=== PATIENT | male | born 1935 | race Caucasian/White ===

== ENCOUNTER 2017-11-27 15:53 | Inpatient (IN) | payer MEDICARE, OTHER ==
[~2017-11-27] VITALS: Ht 170.2 cm; Wt 78.5 kg
--- NOTE | 2017-11-27 16:09 | ED Syncope ---
General Stated Complaint: UNRESPONSIVE Source of Information: Patient, EMS Exam Limitations: No Limitations History of Present Illness Date Seen by Provider: Nov 27, 2017 Time Seen by Provider: 15:49 Initial Comments The patient presents to the ER by EMS with a chief complaint that they have been down in [place] with some family and went up to [place] and ate at a burger joint and afterwards they got in the car and he says that his family told him he promptly passed out and they could not get him to wake up so they called EMS. EMS woke him up with noxious stimuli and distal next thing he remembers. He says he does not have a history of any diabetes, heart problems, seizures, stroke and does not take any medications. EMS says his blood sugar was normal as well as his EKG. He had a temperature of 99 per EMS. They gave him 500 cc of normal saline through IV and they said on the way over he had an episode where he stared off in the space for about 2-3 seconds and then had 2 or 3 myoclonic full body jerks followed by a few more seconds of staring off into space before jerking his head back and looking at the hat former alert and oriented 4. No postictal phase. The patient denies any recent cough, cold, nausea, vomiting. First responders reported that he did vomit up a very small amount of food when they got there. He is not short of breath nor is he having any chest pain. He says this morning he was expressing a little bit of pain in the left side of his neck anteriorly and he felt a nodule but is not there anymore. He has no sore throat, hoarseness, runny nose, ears popping or feeling underwater, chills, sweats, rash, insect bite, recent travel outside the [facility], sick contacts or drinking/eating from unsafe food or water sources. Allergies and Home Medications Allergies Coded Allergies: No Known Drug Allergies (Unverified , 11/27/17) Patient Home Medication List Home Medication List Reviewed: Yes Constitutional: No chills, No diaphoresis, No fever, No malaise EENTM: No ear discharge, No ear pain, No eye pain, No vision loss, No mouth pain Respiratory: No cough, No short of breath Cardiovascular: No chest pain, No edema, No palpitations Gastrointestinal: No abdominal pain, No constipation, No nausea; vomiting Genitourinary: No discharge, No dysuria Musculoskeletal: No back pain, No joint pain Skin: No pruritus, No rash Psychiatric/Neurological: Denies Headache, Denies Numbness Past Rjjjdva-Trayxf-Zhwjjz Hx Patient Social History Alcohol Use: Denies Use Recreational Drug Use: No Smoking Status: Never a Smoker Physical Exam Vital Signs Vital Signs - First Documented 11/27/17 15:53 Temp 100.9 Pulse 93 Resp 20 B/P (MAP) 152/81 (104) O2 Delivery Room Air Capillary Refill : General Appearance: No Apparent Distress, WD/WN HEENT: PERRL/EOMI, TMs Normal, Normal ENT Inspection, Pharynx Normal Neck: Full Range of Motion, Non Tender, Supple Cardiovascular: Regular Rate, Rhythm, No Edema, No Murmur, Normal Peripheral Pulses Respiratory: Chest Non Tender, Lungs Clear, Normal Breath Sounds, No Accessory Muscle Use, No Respiratory Distress Gastrointestinal: Normal Bowel Sounds, No Organomegaly, Non Tender, Soft Back: Normal Inspection, No CVA Tenderness, No Vertebral Tenderness Extremities: Normal Capillary Refill, Normal Inspection, Normal Range of Motion , Non Tender, No Calf Tenderness, No Pedal Edema Neurologic/Psychiatric: Alert, Oriented x3, No Motor/Sensory Deficits, Normal 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, 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 Norm as Tested Cranial Nerves: Normal Hearing, Normal Speech, PERRL Motor/Sensory: No Motor Deficit, No Sensory Deficit Skin: Normal Color, Warm/Dry, Ecchymosis (right foot second toe distal phalanx old bruising without tenderness or loss of range of motion) Focused Exam Lactate Level 11/27/17 15:55: Lactic Acid Level 1.57 Lactic Acid Level Laboratory Tests Test 11/27/17 15:55 Lactic Acid Level 1.57 MMOL/L (0.50-2.00) Progress/Results/Core Measures Results/Orders Lab Results Laboratory Tests Test 11/27/17 15:55 11/27/17 16:45 11/27/17 16:51 Range/Units White Blood Count 11.6 H 4.3-11.0 10^3/uL Red Blood Count 4.84 4.35-5.85 10^6/uL Hemoglobin 15.2 13.3-17.7 G/DL Hematocrit 44 40-54 % Mean Corpuscular Volume 90 80-99 FL Mean Corpuscular Hemoglobin 31 25-34 PG Mean Corpuscular Hemoglobin Concent 35 32-36 G/DL Red Cell Distribution Width 13.6 10.0-14.5 % Platelet Count 178 130-400 10^3/uL Mean Platelet Volume 11.3 H 7.4-10.4 FL Neutrophils (%) (Auto) 78 H 42-75 % Lymphocytes (%) (Auto) 8 L 12-44 % Monocytes (%) (Auto) 13 H 0-12 % Eosinophils (%) (Auto) 1 0-10 % Basophils (%) (Auto) 0 0-10 % Neutrophils # (Auto) 9.0 H 1.8-7.8 X 10^3 Lymphocytes # (Auto) 0.9 L 1.0-4.0 X 10^3 Monocytes # (Auto) 1.5 H 0.0-1.0 X 10^3 Eosinophils # (Auto) 0.1 0.0-0.3 10^3/uL Basophils # (Auto) 0.0 0.0-0.1 10^3/uL Sodium Level 135 135-145 MMOL/L Potassium Level 4.5 3.6-5.0 MMOL/L Chloride Level 103 98-107 MMOL/L Carbon Dioxide Level 21 21-32 MMOL/L Anion Gap 11 5-14 MMOL/L Blood Urea Nitrogen 18 7-18 MG/DL Creatinine 1.35 H 0.60-1.30 MG/DL Estimat Glomerular Filtration Rate 51 BUN/Creatinine Ratio 13 Glucose Level 124 H 70-105 MG/DL Lactic Acid Level 1.57 0.50-2.00 MMOL/L Calcium Level 8.9 8.5-10.1 MG/DL Magnesium Level 2.1 1.8-2.4 MG/DL Total Bilirubin 2.1 H 0.1-1.0 MG/DL Aspartate Amino Transf (AST/SGOT) 19 5-34 U/L Alanine Aminotransferase (ALT/SGPT) 18 0-55 U/L Alkaline Phosphatase 60 40-136 U/L Troponin I < 0.30 <0.30 NG/ML C-Reactive Protein High Sensitivity 8.75 H 0.00-0.50 MG/DL Total Protein 6.9 6.4-8.2 GM/DL Albumin 3.8 3.2-4.5 GM/DL Group A Streptococcus Screen NEGATIVE NEGATIVE Urine Color YELLOW Urine Clarity CLEAR Urine pH 7 5-9 Urine Specific [place] 1.015 L 1.016-1.022 Urine Protein 3+ H NEGATIVE Urine Glucose (UA) NEGATIVE NEGATIVE Urine Ketones NEGATIVE NEGATIVE Urine Nitrite NEGATIVE NEGATIVE Urine Bilirubin NEGATIVE NEGATIVE Urine Urobilinogen 1 NORMAL MG/DL Urine Leukocyte Esterase 3+ H NEGATIVE Urine RBC (Auto) NEGATIVE NEGATIVE Urine RBC NONE /HPF Urine WBC 10-25 H /HPF Urine Squamous Epithelial Cells 5-10 /HPF Urine Crystals NONE /LPF Urine Bacteria TRACE /HPF Urine Casts PRESENT /LPF Urine Granular Casts RARE /LPF Urine Mucus NEGATIVE /LPF Urine Culture Indicated YES My Orders Orders - VIRGIE NARANJO Ct Head Wo (11/27/17 16:04) Saline Lock/Iv-Start (11/27/17 16:04) Comprehensive Metabolic Panel (11/27/17 16:04) Hs C Reactive Protein (11/27/17 16:04) Magnesium (11/27/17 16:04) Rapid Strep A Screen (11/27/17 16:04) Troponin I (11/27/17 16:04) Ua Culture If Indicated (11/27/17 16:04) Chest Pa/Lat (2 View) (11/27/17 16:04) Continuous Ekg Monitoring (11/27/17 16:04) Ekg Tracing (11/27/17 16:04) Cbc With Automated Diff (11/27/17 16:04) Blood Culture (11/27/17 16:42) Lactic Acid Analyzer (11/27/17 16:42) Piperacillin Sodium/Tazobactam (Zosyn Vi (11/27/17 16:45) Urine Culture (11/27/17 16:51) Medications Given in ED Current Medications Medications Dose Ordered Sig/Virgie Route Start Time Stop Time Status Last Admin Dose Admin Piperacillin Sod/ Tazobactam Sod 4.5 gm/Dextrose 100 ml @ 200 mls/hr ONCE ONCE IV 11/27/17 16:45 11/27/17 17:14 DC 11/27/17 17:10 200 MLS/HR Vital Signs/I&O 11/27/17 15:53 Temp 100.9 Pulse 93 Resp 20 B/P (MAP) 152/81 (104) O2 Delivery Room Air Progress Progress Note : Time: 16:34 Progress Note Fever and syncope uncertain source. We'll obtain blood and urine, chest x-ray and CT of head. He is received 500 cc from EMS we'll let him have the other 500 cc of the bag and reevaluate. Initial white count of 11 is nonspecific. Initial ECG Impression Date: Nov 27, 2017 Initial ECG Impression Time: 15:53 Initial ECG Rate: 88 Initial ECG Rhythm: Normal Sinus Initial ECG Intervals: Normal Initial ECG Impression: Normal Comment No ST segment elevation or depression Diagnostic Imaging Diagonstic Imaging: Xray Plain Films/CT/US/NM/MRI: chest Comments [facility]. [place], [place] NAME: [employer] REC#: [id number] PT STATUS: REG ER : 1935 PHYSICIAN: VIRGIE NARANJO MD ADMIT DATE: 11/27/17/ER Draft Date of Exam:11/27/17 CHEST PA/LAT (2 VIEW) INDICATION: Fever. EXAMINATION: PA and lateral chest at 4:49 p.m. COMPARISON: There are no prior studies available for comparison. FINDINGS: The heart size is within normal limits. There are alveolar/interstitial infiltrates in the right lung base and the left perihilar region. These findings are most likely due to pneumonia/atelectasis. The lungs are otherwise clear. There is no evidence for a pleural effusion. The mediastinum is not widened. The osseous structures are intact. IMPRESSION: There is left perihilar and right lower lobe pneumonia/atelectasis. A followup exam would be recommended for continued evaluation. Dictated on workstation # [id number] Dict: 11/27/17 1653 Trans: 11/27/[address] [facility] [id number] Interpreted by: KATIE SWANSON MD Electronically signed by: Reviewed: Reviewed by Me Diagonstic Imaging: CT Plain Films/CT/US/NM/MRI: head Comments [facility]. [place], [place] NAME: [employer] REC#: [id number] PT STATUS: REG ER : 1935 PHYSICIAN: VIRGIE NARANJO MD ADMIT DATE: 11/27/17/ER Draft Date of Exam:11/27/17 CT HEAD WO PROCEDURE: CT head without contrast. TECHNIQUE: Multiple contiguous axial images were obtained through the brain without the use of intravenous contrast. INDICATION: Unresponsive. COMPARISON: There are no prior studies available for comparison. FINDINGS: There is no mass, shift of the midline or hemorrhage to suggest an acute intracranial abnormality. The ventricles are not abnormally dilated. There is cortical atrophy present. The degree of atrophy is consistent with the patient's age. There are also areas of low density in the periventricular white matter, bilaterally. These findings are nonspecific but may be related to encephalomalacia from microvascular ischemia. The bone windows show no evidence for a fracture or for a destructive lesion. The orbits are symmetrical and within normal limits. There is mild mucosal thickening of the ethmoid sinuses. The sinuses, where visualized, are otherwise clear. IMPRESSION: 1. There is no evidence for an acute intracranial abnormality. 2. If clinical concern regarding an underlying abnormality persists, then MRI would be recommended for further study. Dictated on workstation # [id number] Dict: 11/27/17 1628 Trans: 11/27/[address] [facility] [id number] Interpreted by: KATIE SWANSON MD Electronically signed by: Reviewed: Reviewed by Me Departure Communication (Admissions) Time/Spoke to Admitting Phy: 18:02 Discussed case lab imaging EKG and findings with Dr. Alanis of syncopal episode and potential source of fever being pneumonia. Discussed the leukocytes in the urine. She is okay with Zosyn at this time. Impression Primary Impression: Syncopal episodes Qualified Codes: R55 - Syncope and collapse Additional Impression: Fever and chills Disposition: ADMITTED INPATIENT Condition: Stable Admissions Decision to Admit Reason: Admit from ER (General) Decision to Admit/Date: Nov 27, 2017 Time/Decision to Admit Time: 18:02 Departure-Patient Inst. Referrals: NO,LOCAL PHYSICIAN (PCP/Family) Primary Care Physician VIRGIE NARANJO Nov 27, 2017 16:09
[2017-11-27 16:11] LABS: BASOPHILS % (AUTO) 0 % (0-10); EOSINOPHILS # (AUTO) 0.1 10^3/uL (0.0-0.3); EOSINOPHILS % (AUTO) 1 % (0-10); HEMATOCRIT 44 % (40-54); HEMOGLOBIN 15.2 G/DL (13.3-17.7); LYMPHOCYTES # (AUTO) 0.9 X 10^3 (1.0-4.0); LYMPHOCYTES % (AUTO) 8 % (12-44); MEAN CORPUSCULAR HEMOGLOBIN 31 PG (25-34); MEAN CORPUSCULAR HGB CONC 35 G/DL (32-36); MEAN CORPUSCULAR VOLUME 90 FL (80-99); MEAN PLATELET VOLUME 11.3 FL (7.4-10.4); MONOCYTES # (AUTO) 1.5 X 10^3 (0.0-1.0); MONOCYTES % (AUTO) 13 % (0-12); NEUTROPHILS % (AUTO) 78 % (42-75); PLATELET COUNT 178 10^3/uL (130-400); RED BLOOD COUNT 4.84 10^6/uL (4.35-5.85); RED CELL DISTRIBUTION WIDTH 13.6 % (10.0-14.5); WHITE BLOOD COUNT 11.6 10^3/uL (4.3-11.0)
[2017-11-27 16:34] LABS: ALANINE AMINOTRANSFERASE 18 U/L (0-55); ALBUMIN 3.8 GM/DL (3.2-4.5); ALKALINE PHOSPHATASE 60 U/L (40-136); BILIRUBIN,TOTAL 2.1 MG/DL (0.1-1.0); BUN/CREATININE RATIO 13; CALCIUM 8.9 MG/DL (8.5-10.1); CARBON DIOXIDE 21 MMOL/L (21-32); CHLORIDE 103 MMOL/L (98-107); CREATININE SERUM 1.35 MG/DL (0.60-1.30); GFR ESTIMATED 51; GLUCOSE 124 MG/DL (70-105); MAGNESIUM 2.1 MG/DL (1.8-2.4); POTASSIUM 4.5 MMOL/L (3.6-5.0); SODIUM 135 MMOL/L (135-145); TOTAL PROTEIN 6.9 GM/DL (6.4-8.2)
[2017-11-27] MEDS ORDERED: PIPERACILLIN SODIUM/TAZOBACTAM 4.5 GM in D5W 100 ML IVPB 100 ML IV ONE (16:45)
[2017-11-27 16:57] LABS: BILIRUBIN,URINE NEGATIVE (NEGATIVE); CLARITY,URINE CLEAR; COLOR,URINE YELLOW; GLUCOSE, URINE (UA) NEGATIVE (NEGATIVE); KETONES,URINE NEGATIVE (NEGATIVE); LEUKOCYTE ESTERASE ,URINE 3+ (NEGATIVE); NITRITE,URINE NEGATIVE (NEGATIVE); PH,URINE 7 (5-9); PROTEIN,URINE 3+ (NEGATIVE); UROBILINOGEN,URINE 1 MG/DL (NORMAL)
--- NOTE | 2017-11-27 17:02 | Diagnostic Imaging Report ---
PROCEDURE: CT head without contrast. TECHNIQUE: Multiple contiguous axial images were obtained through the brain without the use of intravenous contrast. INDICATION: Unresponsive. COMPARISON: There are no prior studies available for comparison. FINDINGS: There is no mass, shift of the midline or hemorrhage to suggest an acute intracranial abnormality. The ventricles are not abnormally dilated. There is cortical atrophy present. The degree of atrophy is consistent with the patient's age. There are also areas of low density in the periventricular white matter, bilaterally. These findings are nonspecific but may be related to encephalomalacia from microvascular ischemia. The bone windows show no evidence for a fracture or for a destructive lesion. The orbits are symmetrical and within normal limits. There is mild mucosal thickening of the ethmoid sinuses. The sinuses, where visualized, are otherwise clear. IMPRESSION: 1. There is no evidence for an acute intracranial abnormality. 2. If clinical concern regarding an underlying abnormality persists, then MRI would be recommended for further study. Dictated by: Dictated on workstation # [id number]
[2017-11-27 17:08] LABS: BACTERIA,URINE TRACE /HPF; GRANULAR CASTS,URINE RARE /LPF
--- NOTE | 2017-11-27 17:19 | Diagnostic Imaging Report ---
INDICATION: Fever. EXAMINATION: PA and lateral chest at 4:49 p.m. COMPARISON: There are no prior studies available for comparison. FINDINGS: The heart size is within normal limits. There are alveolar/interstitial infiltrates in the right lung base and the left perihilar region. These findings are most likely due to pneumonia/atelectasis. The lungs are otherwise clear. There is no evidence for a pleural effusion. The mediastinum is not widened. The osseous structures are intact. IMPRESSION: There is left perihilar and right lower lobe pneumonia/atelectasis. A followup exam would be recommended for continued evaluation. Dictated by: Dictated on workstation # [id number]
[2017-11-27 20:46] VITALS: BP 148/71
[2017-11-27] MEDS ORDERED: IBUPROFEN 800 MG (MOTRIN) TAB PO PRN (21:00)
[2017-11-27] MEDS ORDERED: ONDANSETRON 4 MG/2 ML (SDV) Z0FRAN IV PRN (21:00)
[2017-11-27] MEDS ORDERED: ACETAMINOPHEN 500 MG TAB (TYLENOL) PO PRN (21:00)
[2017-11-27] MEDS: 1/2 NS W/KCL 20 MEQ/L 1,000 ML IV SCH (21:30)
[2017-11-27 23:07] VITALS: BP 148/71
[2017-11-27] MEDS ORDERED: RT-ALBUTEROL SULF 2.5 MG/3 ML PRE-MIX VIAL INH PRN (23:15)
[2017-11-27 23:36] VITALS: BP 145/73
[2017-11-28] VITALS (31 sets, daily range): BP systolic 90–148; BP diastolic 48–92
[2017-11-28] MEDS: PIPERACILLIN/TAZO 4.5 GM/D5W 100 ML IVPB IV SCH ×8 (00:12→23:46)
[2017-11-28 06:03] LABS: BASOPHILS % (AUTO) 0 % (0-10); EOSINOPHILS # (AUTO) 0.2 10^3/uL (0.0-0.3); EOSINOPHILS % (AUTO) 2 % (0-10); HEMATOCRIT 42 % (40-54); HEMOGLOBIN 15.1 G/DL (13.3-17.7); LYMPHOCYTES # (AUTO) 1.2 X 10^3 (1.0-4.0); LYMPHOCYTES % (AUTO) 11 % (12-44); MEAN CORPUSCULAR HEMOGLOBIN 32 PG (25-34); MEAN CORPUSCULAR HGB CONC 36 G/DL (32-36); MEAN CORPUSCULAR VOLUME 90 FL (80-99); MEAN PLATELET VOLUME 11.6 FL (7.4-10.4); MONOCYTES # (AUTO) 1.5 X 10^3 (0.0-1.0); MONOCYTES % (AUTO) 13 % (0-12); NEUTROPHILS # (AUTO) 8.2 X 10^3 (1.8-7.8); NEUTROPHILS % (AUTO) 74 % (42-75); PLATELET COUNT 170 10^3/uL (130-400); RED BLOOD COUNT 4.66 10^6/uL (4.35-5.85); RED CELL DISTRIBUTION WIDTH 13.4 % (10.0-14.5); WHITE BLOOD COUNT 11.1 10^3/uL (4.3-11.0)
[2017-11-28 06:26] LABS: CREATININE SERUM 1.27 MG/DL (0.60-1.30); POTASSIUM 4.4 MMOL/L (3.6-5.0)
[2017-11-28] MEDS: 1/2 NS W/KCL 20 MEQ/L 1,000 ML IV SCH (07:07)
[2017-11-28] MEDS: RT-ALBUTEROL SULF 2.5 MG/3 ML PRE-MIX VIAL INH SCH ×2 (08:05→19:46)
--- NOTE | 2017-11-28 10:28 | Consultation-Cardiology ---
HPI-Cardiology Cardiology Consultation Date of Consultation 11/28/17 Date of Admission Time Seen by Provider: 10:23 Indication: tachycardia HPI 81 years old gentleman with no significant past medical history, was in his usual state of health until yesterday when he started not feeling well, had mild nausea and felt tired. Was in the car coming back home from [place] when he felt sleepy and reclined the car seat and laid down, was confused. When he tried to get out of the car he fell to his knees, did not report full syncope but went to bed and did not feel well. Was slurring his speech and confused. EMS were called. He had low-grade fever and during evaluation he had a yeast out for about 2-3 seconds. Does not recall the events. Denied any chest pain or shortness of breath. Denied any palpitation, workup showed pneumonia and he was admitted and started on antibiotics since then he has been feeling better. This morning he went to atrial fibrillation with rapid ventricular response with a heart rate around 150, has been asymptomatic. Denied any palpitation, expressed that he is feeling well. No previous cardiac history. Does not take any medications or pills. He uses eyedrops. Home Medications & Allergies Allergies: Coded Allergies: No Known Drug Allergies (Unverified , 11/27/17) Home Medication List Reviewed: Yes RWI-Vxoljg-Xhqsjk Hx Patient Social History Marital Status: Employed/Student: retired Alcohol Use: Denies Use Recreational Drug Use: No Smoking Status: Never a Smoker Type Used: Cigarettes Recent Foreign Travel: No Recent Infectious Disease Expo: No Recent Hopitalizations: No Past Medical History past medical history as discussed below Family Medical History Family History: Respiratory disorder 19 FATHER, Onset:60 years & older Stroke 19 MOTHER, Onset:60 years & older Constitutional: see HPI, malaise, weakness EENTM: see HPI, no symptoms reported Respiratory: see HPI; No cough; dyspnea on exertion; No hemoptysis, No orthopnea, No phlegm, No short of breath, No stridor, No wheezing, No other Cardiovascular: see HPI; No chest pain, No edema, No Hx of Intervention, No palpitations, No syncope, No vascular heart diseas, No other Gastrointestinal: no symptoms reported, see HPI Genitourinary: no symptoms reported, see HPI Musculoskeletal: no symptoms reported, see HPI Skin: no symptoms reported, see HPI Psychiatric/Neurological: No Symptoms Reported, See HPI Reviewed Test Results Reviewed Test Results Lab Laboratory Tests Test 11/27/17 15:55 11/27/17 16:45 11/27/17 16:51 11/28/17 05:40 Range/Units White Blood Count 11.6 H 11.1 H 4.3-11.0 10^3/uL Red Blood Count 4.84 4.66 4.35-5.85 10^6/uL Hemoglobin 15.2 15.1 13.3-17.7 G/DL Hematocrit 44 42 40-54 % Mean Corpuscular Volume 90 90 80-99 FL Mean Corpuscular Hemoglobin 31 32 25-34 PG Mean Corpuscular Hemoglobin Concent 35 36 32-36 G/DL Red Cell Distribution Width 13.6 13.4 10.0-14.5 % Platelet Count 178 170 130-400 10^3/uL Mean Platelet Volume 11.3 H 11.6 H 7.4-10.4 FL Neutrophils (%) (Auto) 78 H 74 42-75 % Lymphocytes (%) (Auto) 8 L 11 L 12-44 % Monocytes (%) (Auto) 13 H 13 H 0-12 % Eosinophils (%) (Auto) 1 2 0-10 % Basophils (%) (Auto) 0 0 0-10 % Neutrophils # (Auto) 9.0 H 8.2 H 1.8-7.8 X 10^3 Lymphocytes # (Auto) 0.9 L 1.2 1.0-4.0 X 10^3 Monocytes # (Auto) 1.5 H 1.5 H 0.0-1.0 X 10^3 Eosinophils # (Auto) 0.1 0.2 0.0-0.3 10^3/uL Basophils # (Auto) 0.0 0.0 0.0-0.1 10^3/uL Sodium Level 135 134 L 135-145 MMOL/L Potassium Level 4.5 4.4 3.6-5.0 MMOL/L Chloride Level 103 104 98-107 MMOL/L Carbon Dioxide Level 21 19 L 21-32 MMOL/L Anion Gap 11 11 5-14 MMOL/L Blood Urea Nitrogen 18 14 7-18 MG/DL Creatinine 1.35 H 1.27 0.60-1.30 MG/DL Estimat Glomerular Filtration Rate 51 54 BUN/Creatinine Ratio 13 11 Glucose Level 124 H 126 H 70-105 MG/DL Lactic Acid Level 1.57 0.50-2.00 MMOL/L Calcium Level 8.9 9.0 8.5-10.1 MG/DL Magnesium Level 2.1 1.8-2.4 MG/DL Total Bilirubin 2.1 H 0.1-1.0 MG/DL Aspartate Amino Transf (AST/SGOT) 19 5-34 U/L Alanine Aminotransferase (ALT/SGPT) 18 0-55 U/L Alkaline Phosphatase 60 40-136 U/L Troponin I < 0.30 <0.30 NG/ML C-Reactive Protein High Sensitivity 8.75 H 0.00-0.50 MG/DL Total Protein 6.9 6.4-8.2 GM/DL Albumin 3.8 3.2-4.5 GM/DL Group A Streptococcus Screen NEGATIVE NEGATIVE Urine Color YELLOW Urine Clarity CLEAR Urine pH 7 5-9 Urine Specific [place] 1.015 L 1.016-1.022 Urine Protein 3+ H NEGATIVE Urine Glucose (UA) NEGATIVE NEGATIVE Urine Ketones NEGATIVE NEGATIVE Urine Nitrite NEGATIVE NEGATIVE Urine Bilirubin NEGATIVE NEGATIVE Urine Urobilinogen 1 NORMAL MG/DL Urine Leukocyte Esterase 3+ H NEGATIVE Urine RBC (Auto) NEGATIVE NEGATIVE Urine RBC NONE /HPF Urine WBC 10-25 H /HPF Urine Squamous Epithelial Cells 5-10 /HPF Urine Crystals NONE /LPF Urine Bacteria TRACE /HPF Urine Casts PRESENT /LPF Urine Granular Casts RARE /LPF Urine Mucus NEGATIVE /LPF Urine Culture Indicated YES Physical Exam Vital Signs Vital Signs - First Documented 11/27/17 11/27/17 15:53 20:20 Temp 100.9 Pulse 93 Resp 20 B/P (MAP) 152/81 (104) Pulse Ox 99 O2 Delivery Room Air O2 Flow Rate 2.00 Capillary Refill : Less Than 3 Seconds General Appearance: WD/WN, Mild Distress Eyes: Bilateral Eye Normal Inspection, Bilateral Eye PERRL, Bilateral Eye EOMI HEENT: PERRL/EOMI, TMs Normal, Normal ENT Inspection, Pharynx Normal Neck: Full Range of Motion, Normal Inspection, Non Tender, Supple, Carotid Bruit Respiratory: Chest Non Tender, Normal Breath Sounds, No Accessory Muscle Use, No Respiratory Distress, Rales Cardiovascular: No Edema, No Gallop, No JVD, No Murmur, Normal Peripheral Pulses, Irregularly Irregular, Tachycardia Gastrointestinal: Normal Bowel Sounds, No Organomegaly, No Pulsatile Mass, Non Tender, Soft Back: Normal Inspection, No CVA Tenderness, No Vertebral Tenderness Extremity: Normal Capillary Refill, Normal Inspection, Normal Range of Motion, Non Tender, No Calf Tenderness, No Pedal Edema Neurologic/Psychiatric: Alert, Oriented x3, No Motor/Sensory Deficits, Normal Mood/Affect Skin: Normal Color, Warm/Dry Lymphatic: No Adenopathy A/P-Cardiology Admission Diagnosis Atrial fibrillation Tachycardia Pneumonia Change in mental status Assessment/Plan Atrial fibrillation with rapid ventricular response, new onset, no known previous history of atrial fibrillation. He is tachycardic, currently asymptomatic. I will start him on Cardizem drip and Lovenox and monitor his tolerance and response, evaluate 2-D echocardiogram Pneumonia, right lower lobe. Receiving antibiotic, managed by medical team. Syncope, confusion and change in mental status, workup so far has been negative. Reporting improvement at this time, feeling better. Clinical Quality Measures DVT/VTE Risk/Contraindication: RFS Level Per Nursing on Admit: 0=No Risk/No VTE PPX ALEX WILKES MD Nov 28, 2017 10:28
[2017-11-28] MEDS ORDERED: DILTIAZEM 25 MG/5 ML INJ (CARDIZEM) VIAL IVP ONE (10:30)
[2017-11-28] MEDS: ENOXAPARIN 80 MG/0.8 ML (LOVENOX) SYR SC SCH ×2 (10:49→23:46)
[2017-11-28] MEDS: DILTIAZEM INJECTION 125 MG in D5W 100 ML IVPB 100 ML IV SCH (10:49)
[2017-11-28] MEDS ORDERED: meTOprolol 5 MG/5 ML (LOPRESSOR) VIAL ONE (11:11)
[2017-11-28] MEDS ORDERED: meTOprolol 5 MG/5 ML (LOPRESSOR) VIAL IV ONE (11:30)
[2017-11-28] MEDS ORDERED: LACTATED RINGERS 1,000 ML IV SCH (13:15)
[2017-11-28] MEDS ORDERED: LACTATED RINGERS 1,000 ML IV ONE (13:18)
[2017-11-28] MEDS: LACTATED RINGERS 1,000 ML IV SCH ×4 (13:22→20:19)
[2017-11-28] MEDS ORDERED: NEO/3.5O OU (13:47)
[2017-11-28] MEDS ORDERED: OMG1KC PO (13:47)
[2017-11-28] MEDS ORDERED: MULT-35 PO (13:47)
[2017-11-28] MEDS ORDERED: VIT1CAPS9 PO (13:47)
[2017-11-28] MEDS ORDERED: PROP1DRO7 OU (13:47)
[2017-11-28] MEDS ORDERED: LIDOCAINE UROJET 2% GEL 10 ML PKG ONE (13:48)
[2017-11-28] MEDS ORDERED: VANCOMYCIN INJECTION 1,500 MG in NS IV 500 ML 500 ML IV NR (14:00)
[2017-11-28 14:06] LABS: ALBUMIN 3.9 GM/DL (3.2-4.5); BILIRUBIN,TOTAL 2.5 MG/DL (0.1-1.0); CALCIUM 9.5 MG/DL (8.5-10.1); CREATININE SERUM 1.33 MG/DL (0.60-1.30); POTASSIUM 4.4 MMOL/L (3.6-5.0); TOTAL PROTEIN 7.3 GM/DL (6.4-8.2)
[2017-11-28 14:09] LABS: BILIRUBIN,URINE NEGATIVE (NEGATIVE); COLOR,URINE YELLOW; GLUCOSE, URINE (UA) NEGATIVE (NEGATIVE); KETONES,URINE NEGATIVE (NEGATIVE); LEUKOCYTE ESTERASE ,URINE NEGATIVE (NEGATIVE); NITRITE,URINE NEGATIVE (NEGATIVE); PH,URINE 6 (5-9); PROTEIN,URINE 2+ (NEGATIVE); UROBILINOGEN,URINE NORMAL (NORMAL)
[2017-11-28 14:26] LABS: BACTERIA,URINE NEGATIVE /HPF; CLARITY,URINE CLEAR; SQUAMOUS EPITHELIAL CELL,UR RARE /HPF
--- NOTE | 2017-11-28 16:06 | History & Physical-Hospitalist ---
History of Present Illness HPI/Chief Complaint The patient is an 81-year-old white male who presented to the emergency room by ambulance. There was a rather odd story of having been in [place] with family. They then drove to [place] and ate at a burger joint. After completing that they got in the car and he was observed to pass out and to be unarousable. The family apparently called EMS. They were able to awaken him in the ambulance by virtue of noxious stimuli. He reports that he is never had this sort of thing before. He was described by the EMS attendance as having an episode on their journey to our ER in which he stared off in space for 2 or 3 seconds and then had a couple of myoclonic full body jerks. He was pleasant but appeared somewhat confused about the details leading to admission Date Seen 11/28/17 Time Seen by Provider: 15:30 Attending Physician Kristin Reynolds MD PCP No,Local Physician Referring Physician Date of Admission Nov 27, 2017 at 20:08 Home Medications & Allergies Home Medications Reviewed patient Home Medication Reconciliation performed by pharmacy medication reconciliations histopathology technician and/or nursing. Patients Allergies have been reviewed. Allergies Allergies Coded Allergies No Known Drug Allergies (Unverified11/27/17) Past Euzvsnm-Xizmte-Xguifp Hx Past Med/Social Hx: Reviewed Nursing Past Med/Soc Hx Patient Social History Marrital Status: Employed/Student: retired Alcohol Use: Denies Use Recreational Drug Use: No Smoking Status: Never a Smoker Type Used: Cigarettes Recent Foreign Travel: No Contact w/other who traveled: No Recent Hopitalizations: No Recent Infectious Disease Expo: No Seasonal Allergies Seasonal Allergies: No Past Medical History Currently Using CPAP: No Currently Using BIPAP: No Sexually Transmitted Disease: No HIV/AIDS: No Are Your Blood Sugars Over 250: No Loss of Vision: Denies Hearing Impairment: Denies Did You Recieve Any Treatments: No History of Blood Disorders: No Adverse Reaction to Blood Swanson: No Family History Respiratory disorder 19 FATHER, Onset:60 years & older Stroke 19 MOTHER, Onset:60 years & older Review of Systems Constitutional: see HPI EENTM: no symptoms reported Respiratory: no symptoms reported Gastrointestinal: no symptoms reported Genitourinary: no symptoms reported Musculoskeletal: muscle weakness Skin: no symptoms reported Psychiatric/Neurological: Other (confusion) Physical Exam Physical Exam Vital Signs Vital Signs - First Documented 11/27/17 11/27/17 15:53 20:20 Temp 100.9 Pulse 93 Resp 20 B/P (MAP) 152/81 (104) Pulse Ox 99 O2 Delivery Room Air O2 Flow Rate 2.00 Capillary Refill : Less Than 3 Seconds General Appearance: No Apparent Distress, WD/WN Eyes: Bilateral Eye Normal Inspection HEENT: Normal ENT Inspection Neck: Full Range of Motion, Normal Inspection, Non Tender, Supple, Carotid Bruit Respiratory: Chest Non Tender, Lungs Clear, Normal Breath Sounds, No Accessory Muscle Use, No Respiratory Distress Cardiovascular: Irregularly Irregular Gastrointestinal: Normal Bowel Sounds, No Organomegaly, No Pulsatile Mass, Non Tender, Soft Back: Normal Inspection, No CVA Tenderness, No Vertebral Tenderness Extremity: Normal Capillary Refill Neurologic/Psychiatric: Alert, Oriented x3, No Motor/Sensory Deficits, Normal Mood/Affect Skin: Normal Color, Warm/Dry Lymphatic: No Adenopathy Results Results/Procedures Labs Laboratory Tests 11/27/17 15:55 11/28/17 05:40 11/28/17 13:34 11/29/17 03:35 Patient resulted labs reviewed. Assessment/Plan Admission Diagnosis Atrial fibrillation with rapid ventricular response. 2.altered mental status Admission Status: Inpatient Order (span 2 midnights) Reason for Inpatient Admission: A. fib and other maladies which will require more than 48 hours Assessment and Plan Cardiology consultation Clinical Quality Measures DVT/VTE Risk/Contraindication: RFS Level Per Nursing on Admit: 0=No Risk/No VTE PPX VAISHNAVI PINA MD Nov 28, 2017 16:06
[2017-11-28] MEDS: NOREPINEPHRINE 4 MG in NS (IVPB) 250 ML IV SCH (20:19)
[2017-11-29] VITALS (25 sets, daily range): BP systolic 107–159; BP diastolic 56–99
[2017-11-29] MEDS: LACTATED RINGERS 1,000 ML IV SCH ×3 (00:22→16:57)
[2017-11-29] MEDS: NOREPINEPHRINE 4 MG in NS (IVPB) 250 ML IV SCH ×2 (00:22→13:00)
[2017-11-29] MEDS ORDERED: DILTIAZEM 125 MG/25 ML IV (CARDIZEM) IV ONE (03:43)
[2017-11-29] MEDS ORDERED: NS (IVPB) 100 ML ONE (03:43)
[2017-11-29] MEDS: DILTIAZEM INJECTION 125 MG in D5W 100 ML IVPB 100 ML IV SCH (03:48)
[2017-11-29 04:19] LABS: BASOPHILS % (AUTO) 0 % (0-10); EOSINOPHILS # (AUTO) 0.3 10^3/uL (0.0-0.3); EOSINOPHILS % (AUTO) 4 % (0-10); HEMATOCRIT 40 % (40-54); LYMPHOCYTES # (AUTO) 0.8 X 10^3 (1.0-4.0); LYMPHOCYTES % (AUTO) 10 % (12-44); MEAN CORPUSCULAR HEMOGLOBIN 32 PG (25-34); MEAN CORPUSCULAR HGB CONC 35 G/DL (32-36); MEAN CORPUSCULAR VOLUME 91 FL (80-99); MEAN PLATELET VOLUME 11.9 FL (7.4-10.4); MONOCYTES # (AUTO) 0.9 X 10^3 (0.0-1.0); MONOCYTES % (AUTO) 12 % (0-12); NEUTROPHILS # (AUTO) 5.7 X 10^3 (1.8-7.8); NEUTROPHILS % (AUTO) 74 % (42-75); PLATELET COUNT 158 10^3/uL (130-400); RED BLOOD COUNT 4.41 10^6/uL (4.35-5.85); RED CELL DISTRIBUTION WIDTH 13.9 % (10.0-14.5); WHITE BLOOD COUNT 7.7 10^3/uL (4.3-11.0)
[2017-11-29 04:48] LABS: ALANINE AMINOTRANSFERASE 23 U/L (0-55); ALBUMIN 3.1 GM/DL (3.2-4.5); ALKALINE PHOSPHATASE 51 U/L (40-136); BILIRUBIN,TOTAL 1.7 MG/DL (0.1-1.0); BUN/CREATININE RATIO 13; CALCIUM 8.7 MG/DL (8.5-10.1); CARBON DIOXIDE 19 MMOL/L (21-32); CHLORIDE 106 MMOL/L (98-107); CREATININE SERUM 1.16 MG/DL (0.60-1.30); GFR ESTIMATED 60; GLUCOSE 143 MG/DL (70-105); MAGNESIUM 1.9 MG/DL (1.8-2.4); POTASSIUM 4.4 MMOL/L (3.6-5.0); SODIUM 136 MMOL/L (135-145); TOTAL PROTEIN 5.9 GM/DL (6.4-8.2)
[2017-11-29] MEDS: MAGNESIUM 1 GM/100 ML IVPB 100 ML IV SCH (05:03)
[2017-11-29] MEDS: POTASSIUM CL 10MEQ/50ML IVPB 50 ML IV SCH (05:03)
[2017-11-29] MEDS: KCL 20 MEQ TAB (K-DUR) PO SCH (05:03)
--- NOTE | 2017-11-29 05:37 | Pulmonary Consultation ---
History of Present Illness History of Present Illness Date of Consultation 11/29/17 05:22 Time Seen by Provider: 09:07 Date of Admission Reason for Visit: tachycardia History of Present Illness 81 yo presented to ED via EMS after confusion and weakness. Pt had slurred speech upon EMS arrival. Denies SOB, palpitations. HE has had productive cough. He was admitted to 4th floor however became more confused and found to be Afib RVR. PT was transferred to ICU and placed on severe sepsis protocol. He is still currently on Cardizem gtt. I am consulted for ICU management. Allergies and Home Medications Allergies Coded Allergies: No Known Drug Allergies (Unverified , 11/27/17) Home Medications Diltiazem HCl 120 Mg Cap.er.24h, 120 MG PO DAILY Prescribed by: STEVEN RAYMUNDO on 12/01/17 1046 Metoprolol Succinate 25 Mg Tab.er.24h, 25 MG PO DAILY Prescribed by: STEVEN RAYMUNDO on 12/01/17 1046 Multivitamin 1 Each Tablet, 1 TAB PO DAILY, (Reported) John/Polymyx B Sulf/Dexameth 3.5 Gm Oint...g., OU BID, (Reported) APPLY THIN RIBBON TO EACH EYE TWICE DAILY FOR 2 WEEKS FILLED 5-18 [place] 3 Polyunsat Fatty Acids 1,000 Mg Cap, 1,000 MG PO QID, (Reported) Propylene Glycol/Peg 400/Pf 1 Each Droperette, 1 DROP OU QID, (Reported) Tamsulosin HCl 0.4 Mg Cap, 0.4 MG PO HS Prescribed by: JIE SAMPSON on 12/01/17 1209 Vit C/Vit E/Lutein/Min/[place]-3 1 Each Capsule, 1 CAP PO BID, (Reported) Past Izethyy-Oonvdn-Mlfhio Hx Patient Social History Alcohol Use: Denies Use Recreational Drug Use: No Smoking Status: Never a Smoker Type Used: Cigarettes Recent Foreign Travel: No Contact w/Someone Who Travel: No Recent Infectious Disease Expo: No Recent Hopitalizations: No Seasonal Allergies Seasonal Allergies: No Past Medical History Surgeries: No Respiratory: No Currently Using CPAP: No Currently Using BIPAP: No Cardiac: No Neurological: No Sexually Transmitted Disease: No HIV/AIDS: No Genitourinary: No Gastrointestinal: No Musculoskeletal: No Endocrine: No Are Your Blood Sugars Over 250: No HEENT: No Loss of Vision: Denies Hearing Impairment: Denies Cancer: No Did You Recieve Any Treatments: No Psychosocial: No Integumentary: No Blood Disorders: No Adverse Reaction/Blood Tranf: No Family Medical History Respiratory disorder 19 FATHER, Onset:60 years & older Stroke 19 MOTHER, Onset:60 years & older Review of Systems Time Seen by Provider: 05:44 Constitutional: Fever, Chills, Sweats, Weakness, Malaise Respiratory: Cough, Shortness of breath, Sputum; No: Wheezing, Hemoptysis Cardiovascular: Orthopnea, Paroxysmal Noc. Dyspnea; No: Palpitations Gastrointestinal: Nausea; No: Vomiting, Abdominal Pain, Diarrhea Neurological: Weakness, Change in speech, Confusion Exam Exam Vital Signs Date Time Temp Pulse Resp B/P (MAP) Pulse Ox O2 Delivery O2 Flow Rate FiO2 11/29/17 05:00 67 16 115/69 (84) 94 Nasal Cannula 2.00 11/29/17 04:00 71 21 120/74 (89) 93 Nasal Cannula 2.00 11/29/17 03:50 95 Nasal Cannula 2.00 11/29/17 03:45 99.1 11/29/17 03:00 69 17 125/74 (91) 94 Nasal Cannula 2.00 11/29/17 02:00 70 10 127/70 (89) 94 Nasal Cannula 2.00 11/29/17 01:00 67 11/29/17 01:00 67 12 107/63 (78) 95 Nasal Cannula 2.00 11/29/17 00:00 64 18 108/56 (73) 94 Nasal Cannula 2.00 11/28/17 23:45 94 Nasal Cannula 2.00 11/28/17 23:45 98.3 11/28/17 23:00 65 14 102/56 (71) 94 Nasal Cannula 2.00 11/28/17 22:00 66 28 105/55 (72) 93 Nasal Cannula 2.00 11/28/17 21:00 72 17 104/54 (71) 92 Nasal Cannula 2.00 11/28/17 20:00 65 18 98/51 (67) 92 Nasal Cannula 2.00 11/28/17 20:00 92 Nasal Cannula 2.00 11/28/17 19:46 93 Nasal Cannula 2.00 11/28/17 19:45 63 18 99/60 (73) 93 Nasal Cannula 2.00 11/28/17 19:30 60 15 98/59 (72) 94 Nasal Cannula 2.00 11/28/17 19:15 63 17 97/59 (72) 95 Nasal Cannula 2.00 11/28/17 19:00 97.6 65 14 98/59 (72) 95 Nasal Cannula 2.00 11/28/17 19:00 62 11/28/17 18:00 61 18 95/59 (71) 94 Nasal Cannula 2.00 11/28/17 17:00 64 34 96/56 (69) 94 Nasal Cannula 2.00 11/28/17 16:34 98.2 Nasal Cannula 2.00 11/28/17 16:34 Nasal Cannula 2.00 11/28/17 16:00 66 23 103/50 (67) 95 Nasal Cannula 2.00 11/28/17 15:00 71 23 98/62 (74) 94 Nasal Cannula 2.00 11/28/17 14:15 73 25 97/59 (72) 94 Nasal Cannula 2.00 11/28/17 14:00 75 16 104/60 (75) 93 Nasal Cannula 2.00 11/28/17 13:45 142 28 116/82 96 Room Air 11/28/17 13:45 90 17 109/72 (84) 89 Nasal Cannula 2.00 11/28/17 13:30 93 12 105/82 (90) 92 Nasal Cannula 2.00 11/28/17 13:17 101.5 11/28/17 13:15 96 22 112/75 (87) 89 Nasal Cannula 2.00 11/28/17 13:00 85 14 96/48 (64) 95 Nasal Cannula 2.00 11/28/17 13:00 73 11/28/17 12:47 99.8 11/28/17 12:45 110 19 108/92 (97) 96 Nasal Cannula 2.00 11/28/17 12:30 112 17 123/85 (98) 95 Nasal Cannula 2.00 11/28/17 12:25 Nasal Cannula 2.00 11/28/17 12:25 99.8 Nasal Cannula 2.00 11/28/17 12:15 73 25 97/59 (72) 94 Nasal Cannula 2.00 11/28/17 12:06 98.4 Nasal Cannula 2.00 11/28/17 12:00 98 18 90/68 (75) 94 Nasal Cannula 2.00 11/28/17 11:45 94 98/67 (77) Nasal Cannula 2.00 11/28/17 11:30 94 31 106/73 (84) 94 Nasal Cannula 2.00 11/28/17 11:15 142 15 103/81 (88) 94 Room Air 11/28/17 11:00 130 23 112/67 (82) 93 Room Air 11/28/17 10:45 149 30 121/85 (97) 96 Room Air 11/28/17 10:30 Room Air 11/28/17 08:05 90 Room Air 11/28/17 08:00 97.8 71 16 124/75 (91) 92 Room Air 11/28/17 07:00 70 11/28/17 05:49 100.6 I & O 11/29/17 07:00 Intake Total 4530 ml Output Total 1300 ml Balance 3230 ml General Appearance: No Apparent Distress, WD/WN HEENT: PERRL/EOMI, TMs Normal, Normal ENT Inspection, Pharynx Normal Neck: Full Range of Motion, Normal Inspection, Non Tender, Supple, Carotid Bruit Respiratory: Chest Non Tender, Normal Breath Sounds, No Accessory Muscle Use, No Respiratory Distress, Rales Cardiovascular: No Edema, No Gallop, No JVD, No Murmur, Normal Peripheral Pulses, Irregularly Irregular, Tachycardia Capillary Refill: Less Than 3 Seconds Extremity: Normal Capillary Refill, Normal Inspection, Normal Range of Motion, Non Tender, No Calf Tenderness, No Pedal Edema Neurologic/Psychiatric: Alert, Oriented x3, No Motor/Sensory Deficits, Normal Mood/Affect Skin: Normal Color, Warm/Dry Lymphatic: No Adenopathy Results Lab Laboratory Tests 11/27/17 15:55 11/28/17 05:40 11/28/17 13:34 11/29/17 03:35 Assessment/Plan Assessment/Plan Severe Sepsis -Sepsis protocol -Zosyn, Vanco UTI -UA sent to [facility] for C&S Metabolic lactic acidosis - improving -IVF Afib RVR -Cardizem gtt -Cardiology following BAILEY COREY DO Nov 29, 2017 05:37
[2017-11-29] MEDS: PIPERACILLIN/TAZO 4.5 GM/D5W 100 ML IVPB IV SCH ×4 (07:30→16:46)
--- NOTE | 2017-11-29 07:37 | Diagnostic Imaging Report ---
Indication: Shortness of breath. Comparison: 11/27/2017 Findings: Single view of the chest demonstrates cardiac enlargement with interstitial pulmonary edema and trace effusions. This has progressed from the prior exam. There is no pneumothorax. Osseous structures normal. Impression: Cardiac enlargement with new interstitial pulmonary edema with new small effusions. Underlying pneumonia not excluded. Dictated by: Dictated on workstation # [id number]
[2017-11-29] MEDS ORDERED: PATIENT MAY USE OWN MEDS, ALL MC SCH (08:30)
[2017-11-29] MEDS ORDERED: ARTIFICAL TEARS 0.4 ML UNIT DOSE (REFRESH PLUS) OU SCH (09:00)
[2017-11-29] MEDS: RT-ALBUTEROL SULF 2.5 MG/3 ML PRE-MIX VIAL INH SCH ×2 (09:27→20:23)
[2017-11-29] MEDS: NEO/POLY/DEX (MAXITROL) OPHTH OINT 3.5 GM OU SCH ×2 (11:16→21:00)
[2017-11-29] MEDS: SYSTANE EYE DROPS 15 ML (NON-FORMULARY) OP SCH ×4 (11:16→21:00)
[2017-11-29] MEDS: ENOXAPARIN 80 MG/0.8 ML (LOVENOX) SYR SC SCH (11:28)
--- NOTE | 2017-11-29 12:42 | Cardiology Progress Note ---
Subjective Date Seen by Provider: Nov 29, 2017 Time Seen by Provider: 12:40 Subjective/Events-last exam Patient is sitting in a chair, feeling better. No chest pain, asking to go home , still using oxygen, short of breath Review of Systems General: No Chills, No Night Sweats, No Fatigue, No Malaise, No Appetite, No Other HEENT: No Head Aches, No Visual Changes, No Eye Pain, No Ear Pain, No Dysphasia , No Sinus Congestion, No Post Nasal Drip, No Sore Throat, No Other Pulmonary: Dyspnea; No Cough, No Pleuritic Chest Pain, No Other Cardiovascular: No: Chest Pain, Palpitations, Orthopnea, Paroxysmal Noc. Dyspnea, Edema, Lt Headedness, Other Focused Exam Lactate Level 11/27/17 15:55: Lactic Acid Level 1.57 11/28/17 13:37: Lactic Acid Level 3.27*H 11/28/17 16:32: Lactic Acid Level 1.86 Objective-Cardiology Exam Last Set of Vital Signs Vital Signs 11/29/17 11/29/17 11:00 11:30 Temp 99.0 Pulse 86 Resp 25 B/P (MAP) 137/65 (89) Pulse Ox 94 O2 Delivery Nasal Cannula O2 Flow Rate 2.00 Capillary Refill : Less Than 3 Seconds I&O Intake and Output 11/29/17 00:00 Intake Total 4855 ml Output Total 850 ml Balance 4005 ml Intake Oral 790 ml IV Total 4065 ml Output Urine Total 850 ml # Voids 2 Daily Weight Change No Unsure General: Alert, Oriented X3, Cooperative HEENT: Atraumatic, PERRLA Neck: Supple, No JVD, No Thyromegaly Lungs: Normal Air Movement, Other (Rhonchi) Heart: Regular Rate, Normal S1, Normal S2, No Murmurs Abdomen: Normal Bowel Sounds, Soft, No Tenderness, No Hepatosplenomegaly, No Masses Extremities: No Clubbing, No Cyanosis, No Edema, Normal Pulses, No Tenderness/ Swelling Skin: No Rashes, No Breakdown, No Significant Lesion Neuro: Normal Gait, Normal Speech, Strength at 5/5 X4 Ext, Normal Tone, Sensation Intact Psych/Mental Status: Mental Status NL, Mood NL Results Lab Laboratory Tests 11/28/17 13:34 11/29/17 03:35 A/P-Cardiology Admission Diagnosis Atrial fibrillation Tachycardia Pneumonia Change in mental status Assessment/Plan Atrial fibrillation with rapid ventricular response, new onset, converted to sinus rhythm, I will stop Cardizem and start Toprol, monitor him closely. Echocardiogram showed left atrium is in the upper normal limit, normal LV size and function with ejection fraction 55-65 percent. Continue to monitor [id number] score is 2, yearly risk of stroke without oral anticoagulation is 2.2, this is a transient atrial fibrillation could be secondary to sepsis. I will continue monitoring for now, I'll start him on aspirin and stop Lovenox Suspected pneumonia was ruled out, managed and followed by Dr. Aguilar Urinary tract infection, receiving antibiotics. Sepsis, managed by medical team. Syncope, confusion and change in mental status, better at this time. Continue to monitor Clinical Quality Measures DVT/VTE Risk/Contraindication: RFS Level Per Nursing on Admit: 0=No Risk/No VTE PPX ALEX WILKES MD Nov 29, 2017 12:42
[2017-11-29] MEDS ORDERED: ASPIRIN E.C. 325 MG (ECOTRIN) TABLET PO NR (12:45)
[2017-11-29] MEDS ORDERED: ENOXAPARIN 40 MG/0.4 ML (LOVENOX) SYR SQ SCH (13:00)
[2017-11-29] MEDS ORDERED: VANCOMYCIN 1250 MG/NS 250 ML IVPB IV SCH ×2 (14:00)
--- NOTE | 2017-11-29 15:25 | Progress Note-Hospitalist ---
Progress Note Progress Notes/Assess & Plan Date Seen 11/29/17 Time Seen by Provider: 15:00 Assessment & Plan The patient is much brighter today. He is able to give a linear history of the events leading to his ambulance trip to the emergency room and admission. He has converted to a sinus rhythm. Physical exam: He is alert and composed and rather charming. Lungs are clear to auscultation. CV is regular without murmur. Abdomen is soft. Extremities show no pedal edema. Vital signs are stable. Note: He has been afebrile. His initial white count was 11.6 then 11.1 and now 7.7. Unexplained lactic acid started at 3.27 and is now 1.86. UA showed 10-25 WBCs per high-powered field, culture and sensitivities are not yet available. Impression: Atrial fibrillation with rapid ventricular response now sinus. UA suggesting urinary tract infection Plan: Continue present regimen. Focused Exam Lactate Level 11/27/17 15:55: Lactic Acid Level 1.57 11/28/17 13:37: Lactic Acid Level 3.27*H 11/28/17 16:32: Lactic Acid Level 1.86 VAISHNAVI PINA MD Nov 29, 2017 15:25
[2017-11-30] VITALS (16 sets, daily range): BP systolic 111–165; BP diastolic 60–101
[2017-11-30] MEDS: LACTATED RINGERS 1,000 ML IV SCH ×2 (00:41→10:37)
[2017-11-30] MEDS: PIPERACILLIN/TAZO 4.5 GM/D5W 100 ML IVPB IV SCH ×6 (00:41→16:29)
[2017-11-30] MEDS ORDERED: meTOprolol 5 MG/5 ML (LOPRESSOR) VIAL IV ONE ×2 (01:00→01:30)
[2017-11-30] MEDS ORDERED: meTOprolol 5 MG/5 ML (LOPRESSOR) VIAL ONE ×3 (01:09→01:37)
[2017-11-30] MEDS ORDERED: D5W IV SOLUTION (EXCEL) 250 ML IV ONE (01:37)
[2017-11-30] MEDS ORDERED: AMIODARONE 450 MG/9 ML (CORDARONE) VIAL IV ONE (01:37)
[2017-11-30] MEDS ORDERED: AMIODARONE 150 MG/D5W 100 ML BOLUS IV ONE ×2 (02:15)
[2017-11-30 03:57] LABS: BASOPHILS % (AUTO) 1 % (0-10); EOSINOPHILS # (AUTO) 0.4 10^3/uL (0.0-0.3); EOSINOPHILS % (AUTO) 6 % (0-10); HEMATOCRIT 41 % (40-54); HEMOGLOBIN 14.7 G/DL (13.3-17.7); LYMPHOCYTES % (AUTO) 14 % (12-44); MEAN CORPUSCULAR HEMOGLOBIN 32 PG (25-34); MEAN CORPUSCULAR HGB CONC 36 G/DL (32-36); MEAN CORPUSCULAR VOLUME 91 FL (80-99); MEAN PLATELET VOLUME 12.2 FL (7.4-10.4); MONOCYTES # (AUTO) 0.8 X 10^3 (0.0-1.0); MONOCYTES % (AUTO) 11 % (0-12); NEUTROPHILS % (AUTO) 69 % (42-75); PLATELET COUNT 181 10^3/uL (130-400); RED BLOOD COUNT 4.56 10^6/uL (4.35-5.85); RED CELL DISTRIBUTION WIDTH 13.7 % (10.0-14.5); WHITE BLOOD COUNT 7.2 10^3/uL (4.3-11.0)
[2017-11-30 04:26] LABS: ALANINE AMINOTRANSFERASE 24 U/L (0-55); ALBUMIN 3.3 GM/DL (3.2-4.5); ALKALINE PHOSPHATASE 53 U/L (40-136); BILIRUBIN,TOTAL 1.5 MG/DL (0.1-1.0); BUN/CREATININE RATIO 9; CALCIUM 9.2 MG/DL (8.5-10.1); CARBON DIOXIDE 20 MMOL/L (21-32); CHLORIDE 108 MMOL/L (98-107); CREATININE SERUM 1.09 MG/DL (0.60-1.30); GFR ESTIMATED > 60; GLUCOSE 112 MG/DL (70-105); PHOSPHORUS 2.9 MG/DL (2.3-4.7); POTASSIUM 4.3 MMOL/L (3.6-5.0); SODIUM 138 MMOL/L (135-145); TOTAL PROTEIN 6.4 GM/DL (6.4-8.2)
[2017-11-30] MEDS ORDERED: DILTIAZEM 125 MG/D5W 100 ML DRIP IV SCH ×2 (04:30)
[2017-11-30] MEDS ORDERED: DILTIAZEM 25 MG/5 ML INJ (CARDIZEM) VIAL IVP ONE (04:30)
--- NOTE | 2017-11-30 05:24 | Pulmonary Progress Note ---
Subjective Time Seen by Provider: 05:26 Subjective/Events-last exam Pt is back in Afib RVR. Cardizem gtt is now restarted. Focused Exam Lactate Level 11/27/17 15:55: Lactic Acid Level 1.57 11/28/17 13:37: Lactic Acid Level 3.27*H 11/28/17 16:32: Lactic Acid Level 1.86 Exam Exam Vital Signs Date Time Temp Pulse Resp B/P (MAP) Pulse Ox O2 Delivery O2 Flow Rate FiO2 11/30/17 05:00 124 13 131/96 (108) 96 Nasal Cannula 2.00 11/30/17 04:00 130 20 117/97 (104) 93 Nasal Cannula 2.00 11/30/17 03:00 116 17 111/93 (99) 91 Nasal Cannula 2.00 11/30/17 02:00 112 14 126/97 (107) 95 Nasal Cannula 2.00 11/30/17 01:00 142 14 139/101 (114) 93 Nasal Cannula 2.00 11/30/17 01:00 142 11/30/17 00:29 75 19 125/69 (87) 94 Nasal Cannula 2.00 11/30/17 00:00 Room Air 11/29/17 23:00 73 22 141/72 (95) 89 Nasal Cannula 2.00 11/29/17 22:00 81 11 141/72 (95) 91 Nasal Cannula 2.00 11/29/17 21:00 73 11 135/77 (96) 91 Nasal Cannula 2.00 11/29/17 20:23 92 Room Air 11/29/17 20:00 75 22 148/80 (102) 91 Room Air 11/29/17 20:00 Room Air 11/29/17 19:00 77 12 159/87 (111) 91 Room Air 11/29/17 19:00 81 11/29/17 18:00 85 15 137/99 (112) 95 Room Air 11/29/17 16:47 99.4 93 Room Air 11/29/17 16:40 Room Air 11/29/17 15:00 79 21 145/76 (99) 93 Nasal Cannula 2.00 11/29/17 14:00 74 19 136/72 (93) 96 Nasal Cannula 2.00 11/29/17 13:00 77 13 158/91 (113) 93 Nasal Cannula 2.00 11/29/17 13:00 82 11/29/17 12:00 77 11 144/64 (90) 93 Nasal Cannula 2.00 11/29/17 11:30 99.0 11/29/17 11:00 86 25 137/65 (89) 94 Nasal Cannula 2.00 11/29/17 11:00 Nasal Cannula 2.00 11/29/17 10:00 93 15 128/62 (84) 93 Nasal Cannula 2.00 11/29/17 09:27 94 Nasal Cannula 2.00 11/29/17 09:00 73 18 126/77 (93) 98 Nasal Cannula 2.00 11/29/17 08:00 75 23 133/72 (92) 95 Nasal Cannula 2.00 11/29/17 08:00 98.6 11/29/17 07:30 Nasal Cannula 2.00 11/29/17 07:00 72 11/29/17 07:00 71 14 136/74 (94) 93 Nasal Cannula 2.00 11/29/17 06:45 70 20 116/68 (84) 92 Nasal Cannula 2.00 11/29/17 06:30 72 20 114/73 (87) 92 Nasal Cannula 2.00 11/29/17 06:15 75 21 126/76 (93) 93 Nasal Cannula 2.00 11/29/17 06:00 67 23 117/66 (83) 93 Nasal Cannula 2.00 I & O 11/30/17 07:00 Intake Total 3180 ml Output Total 3775 ml Balance -595 ml General Appearance: No Apparent Distress, WD/WN HEENT: Normal ENT Inspection Neck: Full Range of Motion, Normal Inspection, Non Tender, Supple, Carotid Bruit Respiratory: Chest Non Tender, Lungs Clear, Normal Breath Sounds, No Accessory Muscle Use, No Respiratory Distress Cardiovascular: Irregularly Irregular Capillary Refill: Less Than 3 Seconds Extremity: Normal Capillary Refill Neurologic/Psychiatric: Alert, Oriented x3, No Motor/Sensory Deficits, Normal Mood/Affect Skin: Normal Color, Warm/Dry Lymphatic: No Adenopathy Results Lab Laboratory Tests 11/28/17 05:40 11/28/17 13:34 11/29/17 03:35 11/30/17 03:20 Assessment/Plan Assessment/Plan Severe Sepsis -Sepsis protocol -Rinku, D/C Vanco- await C&S UTI -UA sent to [facility] for C&S Metabolic lactic acidosis - improving -IVF Afib RVR -Cardizem gtt -Cardiology following Probable [place] -Will do out patient testing. 233 BAILEY APARICIO DO Nov 30, 2017 05:24
[2017-11-30] MEDS: NOREPINEPHRINE 4 MG in NS (IVPB) 250 ML IV SCH (05:31)
[2017-11-30] MEDS: MAGNESIUM 1 GM/100 ML IVPB 100 ML IV SCH (05:32)
[2017-11-30] MEDS: POTASSIUM CL 10MEQ/50ML IVPB 50 ML IV SCH (05:32)
[2017-11-30] MEDS: KCL 20 MEQ TAB (K-DUR) PO SCH (05:32)
--- NOTE | 2017-11-30 07:39 | Cardiology Progress Note ---
Subjective Date Seen by Provider: Nov 30, 2017 Time Seen by Provider: 07:37 Subjective/Events-last exam Patient is laying down comfortably in bed, feeling well. Had another episode of atrial fibrillation with rapid ventricular response last night, given 50 mg of IV Lopressor and 150 mg of IV amiodarone and then he was started on Cardizem drip and converted back to sinus rhythm this morning. Still on Cardizem 5 mg per hour Review of Systems General: No Chills, No Night Sweats, No Fatigue, No Malaise, No Appetite, No Other HEENT: No Head Aches, No Visual Changes, No Eye Pain, No Ear Pain, No Dysphasia , No Sinus Congestion, No Post Nasal Drip, No Sore Throat, No Other Pulmonary: No Dyspnea, No Cough, No Pleuritic Chest Pain, No Other Cardiovascular: No: Chest Pain, Palpitations, Orthopnea, Paroxysmal Noc. Dyspnea, Edema, Lt Headedness, Other Focused Exam Lactate Level 11/27/17 15:55: Lactic Acid Level 1.57 11/28/17 13:37: Lactic Acid Level 3.27*H 11/28/17 16:32: Lactic Acid Level 1.86 Objective-Cardiology Exam Last Set of Vital Signs Vital Signs 11/29/17 11/30/17 16:47 05:00 Temp 99.4 Pulse 124 Resp 13 B/P (MAP) 131/96 (108) Pulse Ox 96 O2 Delivery Nasal Cannula O2 Flow Rate 2.00 Capillary Refill : Less Than 3 Seconds I&O Intake and Output 11/30/17 00:00 Intake Total 5005 ml Output Total 4925 ml Balance 80 ml Intake Oral 2620 ml IV Total 2385 ml Output Urine Total 4925 ml # Bowel Movements 2 General: Alert, Oriented X3, Cooperative HEENT: Atraumatic, PERRLA Neck: Supple, No JVD, No Thyromegaly Lungs: Clear to Auscultation, Normal Air Movement Heart: Regular Rate, Normal S1, Normal S2, No Murmurs Abdomen: Normal Bowel Sounds, Soft, No Tenderness, No Hepatosplenomegaly, No Masses Extremities: No Clubbing, No Cyanosis, No Edema, Normal Pulses, No Tenderness/ Swelling Skin: No Rashes, No Breakdown, No Significant Lesion Neuro: Normal Gait, Normal Speech, Strength at 5/5 X4 Ext, Normal Tone, Sensation Intact Psych/Mental Status: Mental Status NL, Mood NL Results Lab Laboratory Tests 11/30/17 03:20 A/P-Cardiology Admission Diagnosis Atrial fibrillation Tachycardia Pneumonia Change in mental status Assessment/Plan Paroxysmal atrial fibrillation with rapid ventricular response, had a second episode of atrial fibrillation last night, converted after Cardizem drip. Has been on Toprol. Given 150 mg of amiodarone. I will change Cardizem to oral start him on Lovenox for now with close monitoring on telemetry Echocardiogram showed left atrium is in the upper normal limit, normal LV size and function with ejection fraction 55-65 percent. Continue to monitor [id number] score is 2, yearly risk of stroke without oral anticoagulation is 2.2, had 2 episodes of atrial fibrillation, I will restart Lovenox at this point and monitor. Suspected pneumonia was ruled out, managed and followed by Dr. Aguilar Urinary tract infection, receiving antibiotics. Sepsis, managed by medical team. Syncope, confusion and change in mental status, better at this time. Continue to monitor Clinical Quality Measures DVT/VTE Risk/Contraindication: RFS Level Per Nursing on Admit: 0=No Risk/No VTE PPX ALEX WILKES MD Nov 30, 2017 07:39
[2017-11-30] MEDS: RT-ALBUTEROL SULF 2.5 MG/3 ML PRE-MIX VIAL INH SCH ×2 (07:51→18:46)
--- NOTE | 2017-11-30 08:06 | Diagnostic Imaging Report ---
INDICATION: Dyspnea. FINDINGS: Portable upright AP view of the chest is obtained. Since study one day earlier, there is continued cardiomegaly and pulmonary venous congestion. Mild increased density is again noted in the perihilar regions which may be due to mild edema. There is blunting of both costophrenic sulci. IMPRESSION: Findings suggest congestive heart failure with mild pulmonary edema and probable bilateral pleural effusions. Dictated by: Dictated on workstation # [id number]
[2017-11-30] MEDS: SYSTANE EYE DROPS 15 ML (NON-FORMULARY) OP SCH ×4 (10:22→21:10)
[2017-11-30] MEDS: ASPIRIN E.C. 325 MG (ECOTRIN) TABLET PO SCH (10:22)
[2017-11-30] MEDS: DILTIAZEM 120 MG (CARDIZEM CD) CAP PO SCH (10:23)
[2017-11-30] MEDS: NEO/POLY/DEX (MAXITROL) OPHTH OINT 3.5 GM OU SCH ×2 (10:23→21:10)
[2017-11-30] MEDS: ENOXAPARIN 80 MG/0.8 ML (LOVENOX) SYR SC SCH ×2 (10:37→21:10)
[2017-11-30] MEDS ORDERED: ENOXAPARIN 40 MG/0.4 ML (LOVENOX) SYR SQ SCH (11:00)
--- NOTE | 2017-11-30 11:52 | Progress Note-Hospitalist ---
Subjective HPI/CC On Admission Date Seen by Provider: Nov 30, 2017 Time Seen by Provider: 10:45 The patient is an 81-year-old white male who presented to the emergency room by ambulance. There was a rather odd story of having been in [place] with family. They then drove to [place] and ate at a burger joint. After completing that they got in the car and he was observed to pass out and to be unarousable. The family apparently called EMS. They were able to awaken him in the ambulance by virtue of noxious stimuli. He reports that he is never had this sort of thing before. He was described by the EMS attendance as having an episode on their journey to our ER in which he stared off in space for 2 or 3 seconds and then had a couple of myoclonic full body jerks. 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 [place], [place] and he just does not believe in pharmaceutical medication He really wants to go home so we'll discontinue his catheter and transfer to fourth floor Reviewed meds and labs Review of Systems General: Malaise Pulmonary: Cough Focused Exam Lactate Level 11/28/17 13:37: Lactic Acid Level 3.27*H 11/28/17 16:32: Lactic Acid Level 1.86 Objective Exam Vital Signs Vital Signs Date Time Temp Pulse Resp B/P (MAP) Pulse Ox O2 Delivery O2 Flow Rate FiO2 11/30/17 18:46 91 Room Air 11/30/17 16:05 97.9 69 20 133/76 (95) 11/30/17 14:14 21 11/30/17 11:00 2.00 Capillary Refill : Less Than 3 Seconds General Appearance: No Apparent Distress, WD/WN, Chronically ill Respiratory: Lungs Clear, Normal Breath Sounds Cardiovascular: Regular Rate, Rhythm, No Edema Neurologic/Psychiatric: Alert, No Motor/Sensory Deficits, Normal Mood/Affect, Other (Subtle confusion) Results/Procedures Lab Laboratory Tests 11/30/17 03:20 Patient resulted labs reviewed. Assessment/Plan Assessment and Plan Assess & Plan/Chief Complaint Assessment: Severe sepsis Pneumonia Volume overload Atrial fibrillation with rapid ventricular response Plan: Transfer to fourth floor DC catheter Continue antibiotics I appreciate pulmonary and cardiology consultations Physical therapy Diagnosis/Problems Diagnosis/Problems (1) Syncopal episodes Status: Acute Qualifiers: Syncope type: unspecified Qualified Codes: R55 - Syncope and collapse (2) Fever and chills Status: Acute (3) Severe sepsis Status: Resolved (4) Pleural effusion Status: Acute (5) Fear associated with healthcare Status: Chronic (6) Debility Status: Acute (7) Afib Status: Acute Qualifiers: Atrial fibrillation type: unspecified Qualified Codes: I48.91 - Unspecified atrial fibrillation Clinical Quality Measures DVT/VTE Risk/Contraindication: RFS Level Per Nursing on Admit: 0=No Risk/No VTE PPX JIE SAMPSON DO Nov 30, 2017 11:52
[2017-11-30] MEDS ORDERED: TROUGH ORDER-PHARMACY XX NR (13:00)
[2017-12-01] VITALS: BP 156/84
[2017-12-01] MEDS ORDERED: D5W 100 ML IVPB 100 ML IV ONE ×2 (01:15→23:43)
[2017-12-01] MEDS ORDERED: PIPERACILLIN/TAZO 3.375 GM VIAL (ZOSYN) IV ONE (01:15)
[2017-12-01] MEDS: PIPERACILLIN/TAZO 4.5 GM/D5W 100 ML IVPB IV SCH ×6 (01:22→16:33)
[2017-12-01 05:00] VITALS: BP 157/80
[2017-12-01 05:56] LABS: BASOPHILS # (AUTO) 0.1 10^3/uL (0.0-0.1); BASOPHILS % (AUTO) 1 % (0-10); EOSINOPHILS # (AUTO) 0.5 10^3/uL (0.0-0.3); EOSINOPHILS % (AUTO) 8 % (0-10); HEMATOCRIT 44 % (40-54); HEMOGLOBIN 15.2 G/DL (13.3-17.7); LYMPHOCYTES # (AUTO) 0.8 X 10^3 (1.0-4.0); LYMPHOCYTES % (AUTO) 13 % (12-44); MEAN CORPUSCULAR HEMOGLOBIN 31 PG (25-34); MEAN CORPUSCULAR HGB CONC 35 G/DL (32-36); MEAN CORPUSCULAR VOLUME 90 FL (80-99); MEAN PLATELET VOLUME 11.7 FL (7.4-10.4); MONOCYTES # (AUTO) 0.7 X 10^3 (0.0-1.0); MONOCYTES % (AUTO) 11 % (0-12); NEUTROPHILS # (AUTO) 4.2 X 10^3 (1.8-7.8); NEUTROPHILS % (AUTO) 67 % (42-75); PLATELET COUNT 234 10^3/uL (130-400); RED BLOOD COUNT 4.88 10^6/uL (4.35-5.85); RED CELL DISTRIBUTION WIDTH 13.6 % (10.0-14.5); WHITE BLOOD COUNT 6.3 10^3/uL (4.3-11.0)
[2017-12-01 06:10] LABS: ALBUMIN 3.6 GM/DL (3.2-4.5); BILIRUBIN,TOTAL 1.3 MG/DL (0.1-1.0); CALCIUM 9.3 MG/DL (8.5-10.1); CREATININE SERUM 1.23 MG/DL (0.60-1.30); POTASSIUM 3.8 MMOL/L (3.6-5.0); TOTAL PROTEIN 6.7 GM/DL (6.4-8.2)
--- NOTE | 2017-12-01 07:44 | Pulmonary Progress Note ---
Subjective Time Seen by Provider: 07:43 Subjective/Events-last exam No complications noted. Focused Exam Lactate Level 11/28/17 13:37: Lactic Acid Level 3.27*H 11/28/17 16:32: Lactic Acid Level 1.86 Exam Exam Vital Signs Date Time Temp Pulse Resp B/P (MAP) Pulse Ox O2 Delivery O2 Flow Rate FiO2 12/01/17 05:00 98.1 78 19 157/80 (105) 93 Room Air 12/01/17 01:00 71 12/01/17 00:00 98.9 75 17 156/84 (108) 93 Room Air 11/30/17 20:20 Room Air 11/30/17 19:25 97.7 83 20 132/60 (84) 93 Room Air 11/30/17 19:00 80 11/30/17 18:46 91 Room Air 11/30/17 16:05 97.9 69 20 133/76 (95) 94 Room Air 11/30/17 14:47 97.8 78 20 165/78 (107) 94 Room Air 11/30/17 14:14 71 92 21 11/30/17 13:00 76 11/30/17 12:15 97.5 81 18 125/78 (94) 93 Room Air 11/30/17 12:15 Room Air 11/30/17 11:00 73 18 137/78 (97) 96 Nasal Cannula 2.00 11/30/17 10:00 76 17 133/75 (94) 94 Nasal Cannula 2.00 11/30/17 09:00 84 21 122/72 (89) 92 Nasal Cannula 2.00 11/30/17 08:45 Room Air 11/30/17 08:00 73 19 133/76 (95) 93 Nasal Cannula 2.00 11/30/17 07:52 Nasal Cannula 2.00 11/30/17 07:40 98.0 I & O 12/01/17 07:00 Intake Total 3590 ml Output Total 3850 ml Balance -260 ml General Appearance: No Apparent Distress, WD/WN, Chronically ill HEENT: Normal ENT Inspection Neck: Full Range of Motion, Normal Inspection, Non Tender, Supple, Carotid Bruit Respiratory: Lungs Clear, Normal Breath Sounds Cardiovascular: Regular Rate, Rhythm, No Edema Capillary Refill: Less Than 3 Seconds Extremity: Normal Capillary Refill Neurologic/Psychiatric: Alert, No Motor/Sensory Deficits, Normal Mood/Affect, Other (Subtle confusion) Skin: Normal Color, Warm/Dry Lymphatic: No Adenopathy Results Lab Laboratory Tests 11/30/17 03:20 12/01/17 05:16 Assessment/Plan Assessment/Plan Severe Sepsis- improving -Sepsis protocol -Zosyn, D/C Vanco- await C&S UTI -UA sent to [facility] for C&S Afib RVR -Cardizem gtt -Cardiology following Probable HOLLAND -Will do out patient testing. Last CXR showed pulmonary edema. Will repeat PA/LAT CXR 232 BAILEY APARICIO DO Dec 01, 2017 07:44
[2017-12-01] MEDS: RT-ALBUTEROL SULF 2.5 MG/3 ML PRE-MIX VIAL INH SCH (07:48)
[2017-12-01 08:00] VITALS: BP 158/75
[2017-12-01] MEDS: DILTIAZEM 120 MG (CARDIZEM CD) CAP PO SCH (09:12)
[2017-12-01] MEDS: NEO/POLY/DEX (MAXITROL) OPHTH OINT 3.5 GM OU SCH ×3 (09:13→21:29)
[2017-12-01] MEDS: SYSTANE EYE DROPS 15 ML (NON-FORMULARY) OP SCH ×4 (09:13→21:24)
--- NOTE | 2017-12-01 10:22 | Diagnostic Imaging Report ---
INDICATION: Shortness of air. COMPARISON: 11/30/2017. FINDINGS: Frontal and lateral radiographic views of the chest were obtained and continue to show mild cardiomegaly with pulmonary vascular congestion. Panchito B-lines are noted. There is persistent interstitial pulmonary edema, although this may be slightly improved. Small bibasilar effusions are again noted. No pneumothorax is seen on either side. Bony structures show no gross acute abnormalities. IMPRESSION: 1. Cardiomegaly with sequela of CHF as described above. There may be slight interval improved interstitial pulmonary edema. 2. Small bibasilar effusions. Dictated by: Dictated on workstation # [id number]
[2017-12-01] MEDS: ENOXAPARIN 80 MG/0.8 ML (LOVENOX) SYR SC SCH ×2 (10:27→21:27)
[2017-12-01] MEDS: ASPIRIN E.C. 325 MG (ECOTRIN) TABLET PO SCH (10:27)
--- NOTE | 2017-12-01 10:30 | Physical Therapy Evaluation ---
PT Evaluation-General Medical Diagnosis Admission Date Nov 27, 2017 at 20:08 Medical Diagnosis: syncope; AMS Onset Date: Nov 27, 2017 Therapy Diagnosis Therapy Diagnosis: weakness Height/Weight Height (Feet): 5 Height (Inches): 7.00 Weight (Pounds): 173 Weight (Ounces): 2.0 Precautions Precautions/Isolations: Standard Precautions Referral Physician: Les Reason for Referral: Evaluation/Treatment Medical History Pertinent Medical History: Atrial Fib Current History Pt had an episode of not feeling well and feeling cold while out to eat last Tuesday. Drove home and reports he took a fall trying to get into the house. he was able to get himself up and get to his bedroom but once in bed began feeling more ill. EMS called and he was transported to this hospital. Social History Home: Single Level Current Living Status: Alone Entry Into Home: Stairs With Railing Prior/Core FIM Prior Level of Function Functional [place] Measure 0=Not Assessed/NA 4=Minimal Assistance 1=Total Assistance 5=Supervision or Setup 2=Maximal Assistance 6=Modified [place] 3=Moderate Assistance 7=Complete [place] Bed Mobility: 7 Transfers (B,C,W/C) (FIM): 7 Gait: [address]s PT Evaluation-Current Subjective Pt reports he has been up walking on his own. Reports he is being discharged today. Pain Numeric Pain Scale: 0-No Pain Objective Patient Orientation: Person, Place, Time, Situation Problem Solving: Good Attachments: Davila Catheter, IV ROM/Strength ROM Lower Extremities wNL Strength Lower Extremities WNL Integumentary/Posture Integumentary intact Bowel Incontinence: No Bladder Incontinence: Davila Cath Posture normal and symmetrical Neuromuscular (Tone, Coordination, Reflexes) WNL Sensory Vision: Functional Hearing: Hearing Aid/Aides Hand Dominance: Right Sensation Right Lower Extremit: Intact Sensation Left Lower Extremity: Intact Transfers Functional [place] Measure 0=Not Assessed/NA 4=Minimal Assistance 1=Total Assistance 5=Supervision or Setup 2=Maximal Assistance 6=Modified [place] 3=Moderate Assistance 7=Complete [place] Transfers (B, C, W/C) (FIM): 7 Gait Mode of Locomotion: Walk Anticipated Mode of Locomotion: Walk Gait (FIM): 7 Distance (FIM): 3=150 ft Distance: 300 ft Gait Assistive Device: None Comments/Gait Description safe steady gait. Balance Sitting Static: Normal Sitting Dynamic: Normal Standing Static: Normal Standing Dynamic: Normal Assessment/Needs Pt is indep with all functional mobility. No PT needs identified. Rehab Potential: Good PT Plan Treatment/Plan Treatment Plan: Discontinue PT Treatment Plan: Other (DC) Treatment Duration: Dec 01, 2017 Frequency: eval only Estimated Hrs Per Day: Other Patient and/or Family Agrees t: Yes Safety Risks/Education Patient Education: Safety Issues Teaching Recipient: Patient Teaching Methods: Discussion Response to Teaching: Verbalize Understanding Discharge Recommendations Plan DC PT Time/GCodes Time In: 1005 Time Out: 1030 Total Billed Treatment Time: 25 Total Billed Treatment visit EVL 25 IRASEMA RAZO PT Dec 01, 2017 10:30
[2017-12-01] MEDS ORDERED: METO-387 PO (10:46)
[2017-12-01] MEDS ORDERED: DILT120C63 PO (10:46)
--- NOTE | 2017-12-01 10:58 | Progress Note-Cardiology ---
Cardiology SOAP Progress Note Subjective: Sitting up in bed. States he wants to be seen at [facility] [place]. No c/ o CP, SOB or palpitations. Wants to go home today. Objective: I&O/Vital Signs 12/01/17 12/01/17 12/01/17 12/01/17 05:00 07:00 07:50 08:00 Temp 98.1 98.1 Pulse 78 73 77 Resp 19 18 B/P (MAP) 157/80 (105) 158/75 (102) Pulse Ox 93 90 90 O2 Delivery Room Air Room Air Room Air 12/01/17 12/01/17 12/01/17 08:00 12:00 13:00 Temp 98.6 Pulse 91 78 Resp 18 B/P (MAP) 163/85 (111) Pulse Ox 91 O2 Delivery Room Air Room Air 12/01/17 00:00 Intake Total 990 ml Output Total 1200 ml Balance -210 ml Weight (Pounds): 173 Weight (Ounces): 2.0 Weight (Calculated Kilograms): 78.894266 Constitutional: appears stated age, AAO x 3, well-developed, well-nourished Respiratory: No accessory muscle use, No respiratory distress; lungs clear to auscultation Cardiovascular: irregularly irregular; No JVD; S1 and S2 Gastrointestional: No tender; soft, audible bowel sounds Genital/Rectal: other (Urinary catheter to DD with hematuria) Extremities: no lower extremity edema bilateral Neurologic/Psychiatric: grossly intact Skin: No rash, No ulcerations Results/Procedures: Labs Laboratory Tests 12/01/17 01:38: Glucometer 81 12/01/17 05:16: White Blood Count 6.3, Red Blood Count 4.88, Hemoglobin 15.2, Hematocrit 44, Mean Corpuscular Volume 90, Mean Corpuscular Hemoglobin 31, Mean Corpuscular Hemoglobin Concent 35, Red Cell Distribution Width 13.6, Platelet Count 234, Mean Platelet Volume 11.7H, Neutrophils (%) (Auto) 67, Lymphocytes (%) (Auto) 13 , Monocytes (%) (Auto) 11, Eosinophils (%) (Auto) 8, Basophils (%) (Auto) 1, Neutrophils # (Auto) 4.2, Lymphocytes # (Auto) 0.8L, Monocytes # (Auto) 0.7, Eosinophils # (Auto) 0.5H, Basophils # (Auto) 0.1, Sodium Level 138, Potassium Level 3.8, Chloride Level 104, Carbon Dioxide Level 20L, Anion Gap 14, Blood Urea Nitrogen 12, Creatinine 1.23, Estimat Glomerular Filtration Rate 56, BUN/ Creatinine Ratio 10, Glucose Level 97, Calcium Level 9.3, Total Bilirubin 1.3H, Aspartate Amino Transf (AST/SGOT) 28, Alanine Aminotransferase (ALT/SGPT) 27, Alkaline Phosphatase 55, Total Protein 6.7, Albumin 3.6 Microbiology 11/28/17 Blood Culture - Preliminary, Resulted No growth 11/28/17 Gram Stain - Final, Complete 11/28/17 Sputum Culture - Final, Complete Usual/normal fran isolated. 11/27/17 Urine Culture - Final, Complete See Report Laboratory Tests 11/30/17 03:20 12/01/17 05:16 A/P: Assessment: One episode of paroxysmal atrial fibrillation with rapid ventricular response during presentation with sepsis - converted to SR with a controlled rate; maintaining NSR Echocardiogram of 11/28/[address] Pascual showed left atrium is in the upper normal limit, normal LV size and function with ejection fraction 55-65 percent and PASP 20-25 mmHg [id number] score is 2, yearly risk of stroke without oral anticoagulation is 2.2, had 2 episodes of atrial fibrillation - Dr Saldana has specifically forbidden the use of anticoag or antiplatelet therapy at this time (because of gross hematuria) Gross hematuria with clots requiring irrigation and replacement of urinary catheter - Dr Saldana managing Sepsis and urinary tract infection, receiving antibiotics, managed by Dr Saldana Mental status changes, probably related to sepsis - improved; managed by Dr Saldana Plan: Complex management PAF - currently SR with a controlled rate on BB and calcium channel rupert Developed gross hematuria with clots last night requiring vines catheter insertion and irrigation - management per medical services Medical services plans to discharge home today with urinary catheter to leg bag and appt to be seen at [facility] [place] OAC contraindicated d/t hematuria of unknown cause - medical services request ASA be withheld as well. This does place him at increased risk for stroke. We advise cause of hematuria be determined and treated with anti-coagulation started SOL Out pt f/u with Dr. Pascual as scheduled Physician Assessment Physician Assessment No cp or palp or syncope or shortness of breath Cor: reg Lungs: fair to good bilat air entry Legs: no edema A&R * As documented in our note above that I updated (italics) and as noted below * I reviewed his records, examined him and spoke with him * Dr Saldana is treating his sepsis and gross hematuria. She has forbidden use of oral anticoag or antiplatelet agents (due to gross hematuria) * We have advised f/u with Dr Pascual as outpatient STEVEN RAYMUNDO TRANSCRIPTION TYPIST Dec 01, 2017 10:58 CORRINE MAYORGA MD FACP FAC CCDS Dec 01, 2017 15:44
--- NOTE | 2017-12-01 11:00 | Discharge Summary-Hospitalist ---
Diagnosis/Chief Complaint Date of Admission Nov 27, 2017 at 20:08 Date of Discharge Discharge Date: Dec 01, 2017 Admission Diagnosis Atrial fibrillation with rapid ventricular response. 2.altered mental status Discharge Diagnosis (1) Syncopal episodes Status: Resolved (2) Fever and chills Status: Resolved Assessment & Plan: Completed broad-spectrum antibiotics none given at discharge (3) Severe sepsis Status: Resolved (4) Pleural effusion Status: Resolved (5) Fear associated with healthcare Status: Resolved (6) Debility Status: Chronic (7) Afib Status: Acute (8) Urinary retention Status: Acute Assessment & Plan: Requiring Davila catheter maintenance at discharge and leg bag is provided needs close follow-up with primary care provider for his continuation and further management (9) Hematuria Status: Acute (10) Anticoagulant not tolerated Status: Acute (11) Anticoagulant not prescribed at discharge Status: Acute (12) Cognitive deficits Status: Chronic Discharge Summary Discharge Physical Exam Allergies: Coded Allergies: No Known Drug Allergies (Unverified , 11/27/17) Vitals & I&Os Vital Signs Date Time Temp Pulse Resp B/P (MAP) Pulse Ox O2 Delivery O2 Flow Rate FiO2 12/01/17 08:00 98.1 77 18 158/75 (102) 90 Room Air 11/30/17 14:14 21 11/30/17 11:00 2.00 General Appearance: Alert, Oriented X3, Cooperative Psych/Mental Status: Other (Slow to respond to complex questions noted cognitive deficit likely chronic and dementia) Hospital Course Hospital course: Patient had a lengthy hospital course he was diagnosed with severe sepsis and syncopal episode when he suffered an unresponsive episode after eating at a restaurant in [place] and somehow made their way over to the ER via [facility]. Complex medical conditions evaluated in depth and patient was given aggressive IV fluid resuscitation and empiric antibiotics and monitor closely. He did have an episode of atrial fibrillation with rapid ventricular response that was managed by cardiology with IV Cardizem and that was changed to by mouth medication at time of discharge. Lovenox was maintained for stroke prophylaxis but he could not withstand anticoagulation at discharge due to gross hematuria with blood clots causing urinary retention so that will be addressed by primary care provider for long-term anticoagulation use. Cardiology was updated on that and agreed since risk outweighed the benefits. Urinary retention required Davila catheter maintenance due to greater than 800 mL post void residual at 5 o'clock this morning and leg bag will be provided and that will be discontinued by primary care provider. He is agreeable and willing to go home with a leg bag. Although he did not want to see me anymore as his physician here in the hospital I did talk to him with the nurse and everyone was agreeable to the plan there were no issues with the care that I provided at time of discharge and social work was consulted to arrange a close follow-up at the [facility] in [place] where he change from team 7 in [facility]. Labs (last 24 hrs) Laboratory Tests 12/01/17 01:38: Glucometer 81 12/01/17 05:16: White Blood Count 6.3, Red Blood Count 4.88, Hemoglobin 15.2, Hematocrit 44, Mean Corpuscular Volume 90, Mean Corpuscular Hemoglobin 31, Mean Corpuscular Hemoglobin Concent 35, Red Cell Distribution Width 13.6, Platelet Count 234, Mean Platelet Volume 11.7H, Neutrophils (%) (Auto) 67, Lymphocytes (%) (Auto) 13 , Monocytes (%) (Auto) 11, Eosinophils (%) (Auto) 8, Basophils (%) (Auto) 1, Neutrophils # (Auto) 4.2, Lymphocytes # (Auto) 0.8L, Monocytes # (Auto) 0.7, Eosinophils # (Auto) 0.5H, Basophils # (Auto) 0.1, Sodium Level 138, Potassium Level 3.8, Chloride Level 104, Carbon Dioxide Level 20L, Anion Gap 14, Blood Urea Nitrogen 12, Creatinine 1.23, Estimat Glomerular Filtration Rate 56, BUN/ Creatinine Ratio 10, Glucose Level 97, Calcium Level 9.3, Total Bilirubin 1.3H, Aspartate Amino Transf (AST/SGOT) 28, Alanine Aminotransferase (ALT/SGPT) 27, Alkaline Phosphatase 55, Total Protein 6.7, Albumin 3.6 Microbiology 11/28/17 Blood Culture - Preliminary, Resulted No growth 11/28/17 Gram Stain - Final, Complete 11/28/17 Sputum Culture - Final, Complete Usual/normal fran isolated. 11/27/17 Urine Culture - Final, Complete See Report Patient resulted labs reviewed. Pending Labs Laboratory Tests 12/01/17 05:16: White Blood Count 6.3, Red Blood Count 4.88, Hemoglobin 15.2, Hematocrit 44, Mean Corpuscular Volume 90, Mean Corpuscular Hemoglobin 31, Mean Corpuscular Hemoglobin Concent 35, Red Cell Distribution Width 13.6, Platelet Count 234, Mean Platelet Volume 11.7, Neutrophils (%) (Auto) 67, Lymphocytes (%) (Auto) 13 , Monocytes (%) (Auto) 11, Eosinophils (%) (Auto) 8, Basophils (%) (Auto) 1, Neutrophils # (Auto) 4.2, Lymphocytes # (Auto) 0.8, Monocytes # (Auto) 0.7, Eosinophils # (Auto) 0.5, Basophils # (Auto) 0.1, Sodium Level 138, Potassium Level 3.8, Chloride Level 104, Carbon Dioxide Level 20, Anion Gap 14, Blood Urea Nitrogen 12, Creatinine 1.23, Estimat Glomerular Filtration Rate 56, BUN/ Creatinine Ratio 10, Glucose Level 97, Calcium Level 9.3, Total Bilirubin 1.3, Aspartate Amino Transf (AST/SGOT) 28, Alanine Aminotransferase (ALT/SGPT) 27, Alkaline Phosphatase 55, Total Protein 6.7, Albumin 3.6 Discussion & Recommendations Discharge Planning: >30 minutes discharge planning Discharge Home Medications: Active Scripts Active Diltiazem 24Hr Cd (Diltiazem HCl) 120 Mg Cap.er.24h 120 Mg PO DAILY Metoprolol Succinate 25 Mg Tab.er.24h 25 Mg PO DAILY Reported Ocuvite Softgel (Vit C/Vit E/Lutein/Min/Schuyler-3) 1 Each Capsule 1 Cap PO BID Maxitrol Eye Ointment (John/Polymyx B Sulf/Dexameth) 3.5 Gm Oint...g. OU BID APPLY THIN RIBBON TO EACH EYE TWICE DAILY FOR 2 WEEKS FILLED 5-17-18 Systane 0.3-0.4% Eye Drops (Propylene Glycol/Peg 400/Pf) 1 Each Droperette 1 Drop OU QID Daily Multiple Vitamin (Multivitamin) 1 Each Tablet 1 Tab PO DAILY Fish Oil 1,000 mg Capsule (Schuyler 3 Polyunsat Fatty Acids) 1,000 Mg Cap 1,000 Mg PO QID Instructions to patient/family Please see electronic discharge instructions given to patient. Clinical Quality Measures DVT/VTE Risk/Contraindication: RFS Level Per Nursing on Admit: 0=No Risk/No VTE PPX Problem Qualifiers (1) Syncopal episodes: Syncope type: unspecified Qualified Codes: R55 - Syncope and collapse (2) Afib: Atrial fibrillation type: paroxysmal Qualified Codes: I48.0 - Paroxysmal atrial fibrillation (3) Hematuria: Hematuria type: gross Qualified Codes: R31.0 - Gross hematuria JIE SAMPSON DO Dec 01, 2017 11:00
[2017-12-01 12:00] VITALS: BP 163/85
[2017-12-01] MEDS ORDERED: TAMS0.4C98 PO (12:09)
[2017-12-01 16:00] VITALS: BP 156/79
[2017-12-01 19:18] VITALS: BP 130/62
[2017-12-01] MEDS ORDERED: TAMSULOSIN 0.4 MG (FLOMAX) CAP PO SCH (21:00)
[2017-12-02 00:02] VITALS: BP 159/86
[2017-12-02] MEDS: PIPERACILLIN/TAZO 4.5 GM/D5W 100 ML IVPB IV SCH ×2 (00:09)
[2017-12-02 04:54] VITALS: BP 152/75
--- NOTE | 2017-12-02 06:34 | Pulmonary Progress Note ---
Subjective Time Seen by Provider: 07:06 Subjective/Events-last exam pt feels improved. No complications noted. Exam Exam Vital Signs Date Time Temp Pulse Resp B/P (MAP) Pulse Ox O2 Delivery O2 Flow Rate FiO2 12/02/17 04:54 97.8 76 18 152/75 (100) 93 Room Air 12/02/17 01:00 70 12/02/17 00:02 99.3 76 18 159/86 (110) 92 Room Air 12/01/17 20:00 Room Air 12/01/17 19:18 98.0 76 18 130/62 (84) 91 Room Air 12/01/17 19:00 75 12/01/17 16:00 98.7 65 18 156/79 (104) 93 Room Air 12/01/17 13:00 78 12/01/17 12:00 98.6 91 18 163/85 (111) 91 Room Air 12/01/17 08:00 Room Air 12/01/17 08:00 98.1 77 18 158/75 (102) 90 Room Air 12/01/17 07:50 90 Room Air 12/01/17 07:00 73 I & O 12/02/17 07:00 Intake Total 2340 ml Output Total 9550 ml Balance -7210 ml General Appearance: No Apparent Distress, WD/WN, Chronically ill HEENT: Normal ENT Inspection Neck: Full Range of Motion, Normal Inspection, Non Tender, Supple, Carotid Bruit Respiratory: Lungs Clear, Normal Breath Sounds Cardiovascular: Regular Rate, Rhythm, No Edema Capillary Refill: Less Than 3 Seconds Extremity: Normal Capillary Refill Neurologic/Psychiatric: Alert, No Motor/Sensory Deficits, Normal Mood/Affect, Other (Subtle confusion) Skin: Normal Color, Warm/Dry Lymphatic: No Adenopathy Results Lab Laboratory Tests 12/01/17 05:16 Assessment/Plan Assessment/Plan Severe Sepsis- improving -Zosyn, UTI -UA sent to [facility] for C&S Afib RVR -Cardizem gtt -Cardiology following Probable [place] -Will do out patient testing. Last CXR showed pulmonary edema. Will repeat PA/LAT CXR 232 BAILEY APARICIO DO Dec 02, 2017 06:34
[2017-12-02] MEDS ORDERED: FUROSEMIDE 40 MG/4 ML INJ (LASIX) IVP NR (06:45)
[2017-12-02] MEDS ORDERED: KCL 10 MEQ TAB (MICRO K) PO NR (06:45)
[2017-12-02 08:00] VITALS: BP 151/79
[2017-12-02] MEDS: SYSTANE EYE DROPS 15 ML (NON-FORMULARY) OP SCH (08:13)
[2017-12-02] MEDS: DILTIAZEM 120 MG (CARDIZEM CD) CAP PO SCH (08:13)
[2017-12-02] MEDS: ENOXAPARIN 80 MG/0.8 ML (LOVENOX) SYR SC SCH (08:13)
[2017-12-02] MEDS: ASPIRIN E.C. 325 MG (ECOTRIN) TABLET PO SCH (08:14)
--- NOTE | 2017-12-02 11:24 | D/C HH Face to Face Order ---
D/C Face to Face Orders Instructions for Patient Patient Instructions/FollowUp: Follow-up with primary care provider in one week in [facility] Physician to follow Patient: [facility] Discharge Diet for Home: Cardiac Diet Patient Problems: New onset age fibrillation Hematuria now resolved Urinary retention requiring Davila catheter maintenance Patient Data-Allergies,Ht & Wt Patient Allergies: Coded Allergies: No Known Drug Allergies (Unverified , 11/27/17) Height (Feet): 5 Height (Inches): 7.00 Weight (Pounds): 173 Weight (Ounces): 2.0 Home Health Need/Face to Face Date of Face to Face: Dec 02, 2017 Clinical Findings: Generalized weakness and fatigue, Muscle weakness, Other- list in note (Davila catheter maintenance) I have seen Pt [id number]: Yes Discharged To: Home Diagnosis/Conditions: New onset age fibrillation Hematuria now resolved Urinary retention requiring Davila catheter maintenance Patient is Homebound due to: CognItive deficits Homebound Status Due to the above stated illness, injury or surgical procedure (medical condition or diagnosis) and associated clinical findings, the patient is homebound because of his/her inability to leave home except with aid of a supportive device and/or person AND leaving the home requires a considerable and taxing effort or is medically contraindicated. Pt req the following assistanc: Walker Home Health Nursing Orders Home Health Services Order: Nursing Services, Locker Operator-Evaluate & Treat, Physical Therapy-Evaluate & Treat Home Health Infusion Therapy Line Start Date: Nov 28, 2017 Line Start Time: 1050 Line Type: Saline Lock Site Location: Forearm Certify Stmt I certify that this patient is under my care and that I, a nurse practitioner or a physician; a design assistant working with me, had a face to face encounter that - meets the physician face to face encounter requirements with this patient as dated. JIE SAMPSON DO Dec 02, 2017 11:24
--- NOTE | 2017-12-02 13:21 | Progress Note-Cardiology ---
Cardiology SOAP Progress Note Subjective: Sitting up in a chair at the bedside. States he is feeling well. Daughter at the bedside. No c/o CP, SOB, palpitations, syncope or near syncope. Objective: I&O/Vital Signs 12/02/17 12/02/17 12/02/17 04:54 07:00 08:00 Temp 97.8 97.7 Pulse 76 72 74 Resp 18 18 B/P (MAP) 152/75 (100) 151/79 (103) Pulse Ox 93 91 O2 Delivery Room Air Room Air 12/02/17 00:00 Intake Total 1890 ml Output Total 7750 ml Balance -5860 ml Weight (Pounds): 173 Weight (Ounces): 2.0 Weight (Calculated Kilograms): 78.168306 Constitutional: appears stated age, AAO x 3, well-developed, well-nourished Respiratory: No accessory muscle use, No respiratory distress; lungs clear to auscultation Cardiovascular: irregularly irregular; No JVD; S1 and S2 Gastrointestional: No tender; soft, audible bowel sounds Genital/Rectal: other (Urinary catheter to DD with clear, yellow uring) Extremities: no lower extremity edema bilateral Neurologic/Psychiatric: grossly intact Skin: No rash, No ulcerations Results/Procedures: Labs Microbiology 11/28/17 Blood Culture - Preliminary, Resulted No growth 11/28/17 Gram Stain - Final, Complete 11/28/17 Sputum Culture - Final, Complete Usual/normal fran isolated. 11/27/17 Urine Culture - Final, Complete See Report Laboratory Tests 12/01/17 05:16 A/P: Assessment: One episode of paroxysmal atrial fibrillation with rapid ventricular response during presentation with sepsis - converted to SR with a controlled rate; maintaining NSR Echocardiogram of 11/28/[address] Pascual showed left atrium is in the upper normal limit, normal LV size and function with ejection fraction 55-65 percent and PASP 20-25 mmHg [id number] score is 2, yearly risk of stroke without oral anticoagulation is 2.2, had 2 episodes of atrial fibrillation - Dr Saldana has specifically forbidden the use of anticoag or antiplatelet therapy at this time (because of gross hematuria) Gross hematuria with clots requiring irrigation and replacement of urinary catheter - Dr Saldana managing Sepsis and urinary tract infection, receiving antibiotics, managed by Dr Saldana Mental status changes, probably related to sepsis - improved; managed by Dr Saldana Plan: Complex management PAF - currently SR with a controlled rate on BB and calcium channel rupert Developed gross hematuria with clotd requiring vines catheter insertion and irrigation. This has resolved - management per medical services Medical services plans to discharge home today with urinary catheter to leg bag and appt to be seen at the [facility] [place] OAC contraindicated d/t hematuria of unknown cause - medical services request ASA be withheld as well. This does place him at increased risk for stroke. We advise cause of hematuria be determined and treated with anti-coagulation started SOL Out pt f/u with Dr. Pascual as scheduled STEVEN RAYMUNDO Dec 02, 2017 13:21
[2017-12-02 13:47] VITALS: BP 151/79
== END 2017-12-02 13:50 | disposition home health service (06) | DRG 872 ==
LOC: ER 15:55 → 4TH 20:08 → ICU 11-28 10:25 → 4TH 11-30 14:25
PROVIDERS: ADMIT Family Medicine; ATTEND Family Medicine
DX: A41.9 Sepsis, unspecified organism (principal); N39.0 Urinary tract infection, site not specified; E87.2 Acidosis; I48.0 Paroxysmal atrial fibrillation; R31.0 Gross hematuria; R33.9 Retention of urine, unspecified; R00.0 Tachycardia, unspecified; R41.82 Altered mental status, unspecified; R55 Syncope and collapse; R53.81 Other malaise; F40.232 Fear of other medical care
CPT/HCPCS: 36415; 70450; 71045; 71046; 80048; 80053; 81000; 82962; 83605; 83735; 83880; 84100; 84443; 84484; 85025; 86141; 87040; 87070; 87088; 87205; 87430; 93005; 93306; 94640; 94760; 96365